=== PATIENT | male | born 1935 | race Caucasian/White ===

== ENCOUNTER 2017-03-04 11:13 | Emergency (ER) | payer OTHER ==
[2017-03-04 11:17] VITALS: BP 199/94; BMI 25.0
--- NOTE | 2017-03-04 11:31 | DR.GENAD ---
HPI - PCP Primary Care Physician: Oliver - HPI Comment HPI Comment: PATIENT CUT HIS THUMB WITH A SAW 30MIN BEFORE COMING TO ED. TD NOT UTD. PATIENT TAKES PLAVIX. MODERATE BLEEDING NOTED. - Complaint/Symptoms Chief Complaint Doctors Comments: LACERATION LEFT THUMB. Chief Complaint:: left great thumb cut with a saw about 30 min ago - Nurses notes reviewed Nurses Notes Review: Yes - Source History Provided: Patient - Mode of Arrival Mode of Arrival: Ambulatory - Timing Onset of Chief Complaint: 03/04/17 Came on: Suddenly - Duration Duration: Constant Duration: Minutes - Severity Severity: Moderate PMH - PMH Past Medical History: Yes Past Medical History: Hypertension Past Surgical History: Yes Past Surgical History Comment: kidney removed - Family History History of Family Medical Conditions: No - Social History Does patient currently use any type of tobacco product: Yes Have you used tobacco products in the last 12 months: Yes Type of Tobacco Use: Cigarettes How many years tobacco product used: 50 Does any household member use tobacco: No Alcohol Use: None Do you use any recreational Drugs:: No Lives With: Spouse Lives Where: Home - infectious screening In the last 2 months have you had wt loss of >10#?: NO Have you had fever, night sweats or hemotysis?: No Have you traveled outside the country in the last 6 months?: No Isolation: Standard ROS - Review of Systems Constitutional: No Symptoms Reported Eyes: No Symptoms Reported ENTM: No Symptoms Reported Respiratoy: No Symptoms Reported Cardiovascular: No Symptoms Reported Gastrointestinal/Abdominal: No Symptoms Reported Genitourinary: No Symptoms Reported Neurological: No Symptoms Reported Musculoskeletal: Other (LEFT THUMB.) Integumentary: Other (8CM LACERATION DISTAL INNER LEFT THUMB.) Hematologic/Lymphatic: No Symptoms Reported Endocrine: No Symptoms Reported All Other Systems: Reviewed and Negative PE - Vital Signs Vitals: Temperature 98.5 F Pulse Rate 68 Respiratory Rate 18 Blood Pressure 199/94 O2 Sat by Pulse Oximetry 95 - General Limitations: No Limitations General Appearance: Alert - Head Head Exam: Normal Inspection - Eyes Eye exam: Normal Appearance - ENT ENT Exam: Normal External Ear Exam External Ear Exam: Normal External Inspection Nose Exam: Normal Nose Exam Mouth Exam: Normal Inspection Throat Exam: Normal Inspection - Neck Neck Exam: Trachea Midline - Respiratory Respiratory Exam: Bilateral Clear to Auscultation - Cardiovascular Cardiovascular Exam: Regular Rate, Normal Rhythm, Normal Heart Sounds - Abdominal Exam Abdominal Exam: Normal Inspection - Extremities Extremities Exam: Tenderness (LEFT THUMB) - Back Back Exam: Normal Inspection - Neurologic Neurological Exam: Alert, Oriented X3 - Psychiatric Psychiatric Exam: Anxious - Skin Skin Exam: Erythema, Other (8CM LACERATION INNER DISTAL LEFT THUMB.) [facility] - Additional Information Additional Information Obtained From: Family - Differential Diagnosis Differential Diagnosis: ACERATION LEFT THUMB. Course - Treatment Treatment: SEE ORDERS. LACERATION CLOSE. - Education/Counseling Education/Counseling: Patient, Family, Education Educated On: Diagnosis, Needs for Follow Up ROR - XRAY XRAY Interpreted by: Radiologist XRAY Findings: REPORT DISCUSS WITH PATIENT. Procedures - Laceration/Wound Repair Left Thumb Wound Length (cm): 8 Wound's Depth, Shape: Irregular Wound Explored: clean Irrigated w/ Saline (ccs): 1,000 (NS) Betadine Prep?: Yes Anesthesia: 1% Lidocaine Volume Anesthetic (ccs): 10 Wound Debrided: minimal Wound Repaired With: sutures Suture Size/Type: 4:0, Ethilion Number of Sutures: 15 Layer Closure?: Yes Deep Layer Suture Size/Type: 3:0, Vicryl Number Deep Layer Sutures: 4 Sterile Dressing Applied?: Yes Splint Applied?: No Sling Applied?: No - Diagnosis Discharge Problem: Laceration of left thumb Qualifiers: Encounter type: initial encounter Qualified Code(s): S61.012A - Laceration without foreign body of left thumb without damage to nail, initial encounter - Discharge Plan Disposition: 01 HOME, SELF-CARE Condition: Stable Prescriptions: Cephalexin [Keflex Cap 500 mg] 500 mg PO TID #30 cap Tramadol HCl 50 mg PO Q8H PRN #15 tab PRN Reason: Pain - Follow ups/Referrals Follow ups/Referrals: ZENON BENAVIDES [Primary Care Provider] - 3 days - Instructions Instructions: Laceration Care, Adult, [id number] Additional Instructions: RETURN TO ED IF WORSE. SUTURE OUT ON 14 DAYS.
--- NOTE | 2017-03-04 12:08 | RAD ---
HAND RADIOGRAPHS CLINICAL HISTORY: 81-year-old male with laceration to the left thumb. COMPARISON: None. FINDINGS: Three views of the left hand were obtained and demonstrate diffuse changes consistent with osteoarthritis. With bandage overlying the left 1st digit which demonstrates significant soft tissu e edema with no radiographic evidence of underlying fracture remaining imaged osseous structures wit hout fracture or malalignment. IMPRESSION: Soft tissue edema about the left thumb without radiographic evidence of fracture. Reported By:
[2017-03-04] MEDS ORDERED: XYLOCAINE 1 % (PLAIN) ONE (12:15)
[2017-03-04] MEDS ORDERED: NS IRRIGATION 1000 ML 1,000 ML ONE (12:17)
[2017-03-04] MEDS ORDERED: ADACEL TDaP IM ONE ×2 (13:21→13:22)
[2017-03-04] MEDS ORDERED: ANCEF VIAL 1 GM IM ONE (13:24)
[2017-03-04] MEDS ORDERED: ANCEF VIAL 1 GM ONE (13:25)
== END 2017-03-04 13:59 | disposition home or self-care (01) ==
LOC: ER 11:31
PROC: 0XQM0ZZ Repair Left Thumb, Open Approach (ICD-10-PCS; principal; 2017-03-04)
DX: S61.012A Laceration without foreign body of left thumb without damage to nail, initial encounter (principal); M79.89 Other specified soft tissue disorders; W27.0XXA Contact with workbench tool, initial encounter; Y92.9 Unspecified place or not applicable
CPT/HCPCS: 12004; 73130; 90471; 96372; 99282; J0690; J2001

== ENCOUNTER 2023-06-12 16:17 | Inpatient (IN) ==
--- NOTE | 2023-06-12 16:36 | EKG ---
Test Reason : chest pain Blood Pressure : */* mmHG Vent. Rate : 99 BPM Atrial Rate : 99 BPM P-R Int : 144 ms QRS Dur : 84 ms QT Int : 318 ms P-R-T Axes : 44 -40 35 degrees QTc Int : 408 ms Sinus rhythm with premature atrial complexes Left axis deviation Abnormal ECG No previous ECGs available Confirmed by Jovan Alarcon ([id number]) on 06/14/2023 8:02:25 AM Referred By: Confirmed By: Jovan Alarcon
[2023-06-12] MEDS ORDERED: MORPHINE SULFATE INJ 2 MG INJ IVP ONE (16:37)
[2023-06-12] MEDS ORDERED: ZOFRAN INJ 4 MG VIAL IVP ONE (16:38)
[2023-06-12] MEDS ORDERED: NS 250 ML IV 250 ML IV ONE ×2 (16:39→16:45)
--- NOTE | 2023-06-12 16:40 | DR.CP ---
HPI <Marty Juan - Last Filed: 06/12/23 16:56> Time Seen Time Seen by Provider: 06/12/23 16:34 HPI Comment HPI Comment: c/o lt sided chest pain worse with inspiration and cough pt is amoker no hx cariac dis txd for htxn and high cholesterol not c/o sob no nausea no diaphoresis vaccinated for covid PMH <Marty Juan - Last Filed: 06/12/23 16:56> PMH Past Medical History: Hypertension Past Surgical History: Yes Social History Do you use any recreational Drugs:: No ROS <Marty Smithlander - Last Filed: 06/12/23 16:56> Review of Systems Eyes: No Symptoms Reported Cardiovascular: Chest Pain Genitourinary: No Symptoms Reported Musculoskeletal: No Symptoms Reported Endocrine: No Symptoms Reported PE <Marty Juan - Last Filed: 06/12/23 16:56> Vitals Vitals: Vital Signs Temperature 98.3 F Pulse Rate 86 Pulse Rate 91 Pulse Rate 90 Pulse Rate 87 Pulse Rate 89 Pulse Rate 95 Pulse Rate 90 Pulse Rate 94 Pulse Rate 96 Pulse Rate 96 Pulse Rate 96 Pulse Rate 99 Pulse Rate 95 Pulse Rate 96 Pulse Rate 91 Pulse Rate 98 Pulse Rate 95 Pulse Rate 95 Pulse Rate 95 Respiratory Rate 28 Respiratory Rate 25 Respiratory Rate 33 Respiratory Rate 23 Respiratory Rate 40 Respiratory Rate 34 Respiratory Rate 21 Respiratory Rate 22 Respiratory Rate 24 Respiratory Rate 21 Respiratory Rate 24 Respiratory Rate 26 Respiratory Rate 26 Respiratory Rate 24 Respiratory Rate 22 Respiratory Rate 27 Respiratory Rate 29 Blood Pressure 166/86 Blood Pressure 151/73 Blood Pressure 174/81 Blood Pressure 154/84 Blood Pressure 155/79 Blood Pressure 128/86 Blood Pressure 139/95 Blood Pressure 144/82 O2 Sat by Pulse Oximetry 99 O2 Sat by Pulse Oximetry 98 O2 Sat by Pulse Oximetry 94 O2 Sat by Pulse Oximetry 97 O2 Sat by Pulse Oximetry 97 O2 Sat by Pulse Oximetry 97 O2 Sat by Pulse Oximetry 96 O2 Sat by Pulse Oximetry 97 O2 Sat by Pulse Oximetry 96 O2 Sat by Pulse Oximetry 96 O2 Sat by Pulse Oximetry 96 O2 Sat by Pulse Oximetry 96 O2 Sat by Pulse Oximetry 95 O2 Sat by Pulse Oximetry 94 O2 Sat by Pulse Oximetry 94 O2 Sat by Pulse Oximetry 93 O2 Sat by Pulse Oximetry 95 O2 Sat by Pulse Oximetry 94 O2 Sat by Pulse Oximetry 95 Head Head Exam: Normal Inspection Eyes Eye exam: Normal Appearance ENT ENT Exam: Normal Exam Chest Chest Inspection: Normal Inspection Respiratory Respiratory Exam: Bilateral: Crackles and Bilateral: Decreased Breath Sounds Abdominal Exam Abdominal Exam: Normal Inspection and Normal Bowel Sounds Back Back Exam: Normal Inspection Neurologic Neurological Exam: Alert, Oriented X3 and CN II-XII Intact Skin Skin Exam: Warm and Dry <Barron Quinn - Last Filed: 06/12/23 20:25> Vitals Vitals: Vital Signs Temperature 98.3 F Pulse Rate 86 Pulse Rate 91 Pulse Rate 90 Pulse Rate 87 Pulse Rate 89 Pulse Rate 95 Pulse Rate 90 Pulse Rate 94 Pulse Rate 96 Pulse Rate 96 Pulse Rate 96 Pulse Rate 99 Pulse Rate 95 Pulse Rate 96 Pulse Rate 91 Pulse Rate 98 Pulse Rate 95 Pulse Rate 95 Pulse Rate 95 Respiratory Rate 28 Respiratory Rate 25 Respiratory Rate 33 Respiratory Rate 23 Respiratory Rate 40 Respiratory Rate 34 Respiratory Rate 21 Respiratory Rate 22 Respiratory Rate 24 Respiratory Rate 21 Respiratory Rate 24 Respiratory Rate 26 Respiratory Rate 26 Respiratory Rate 24 Respiratory Rate 22 Respiratory Rate 27 Respiratory Rate 29 Blood Pressure 166/86 Blood Pressure 151/73 Blood Pressure 174/81 Blood Pressure 154/84 Blood Pressure 155/79 Blood Pressure 128/86 Blood Pressure 139/95 Blood Pressure 144/82 O2 Sat by Pulse Oximetry 99 O2 Sat by Pulse Oximetry 98 O2 Sat by Pulse Oximetry 94 O2 Sat by Pulse Oximetry 97 O2 Sat by Pulse Oximetry 97 O2 Sat by Pulse Oximetry 97 O2 Sat by Pulse Oximetry 96 O2 Sat by Pulse Oximetry 97 O2 Sat by Pulse Oximetry 96 O2 Sat by Pulse Oximetry 96 O2 Sat by Pulse Oximetry 96 O2 Sat by Pulse Oximetry 96 O2 Sat by Pulse Oximetry 95 O2 Sat by Pulse Oximetry 94 O2 Sat by Pulse Oximetry 94 O2 Sat by Pulse Oximetry 93 O2 Sat by Pulse Oximetry 95 O2 Sat by Pulse Oximetry 94 O2 Sat by Pulse Oximetry 95 MDM <Marty Juan - Last Filed: 06/12/23 16:56> Differential Diagnosis Differential Diagnosis: Angina, Chest Wall Pain, Costochondritis, Pneumonia and Pulmonary Embolus COURSE <Marty Juan - Last Filed: 06/12/23 16:56> Treatment Treatment: duo neb morphine zofran asprin Critical Care Notes Critical Diagnosis: hypoxia /abg p02 66 room air <Barron Quinn - Last Filed: 06/12/23 20:25> Treatment Treatment: duo neb morphine zofran asprin 2023 - pt seen & treated by Dr Juan, accepted in admission by Dr Olivo. Admission orders written by nv - Dr Quinn. ROR <Marty Juan - Last Filed: 06/12/23 16:56> Labs Reviewed 06/12/23 16:45 06/12/23 16:45 Laboratory: WBC 8.7 X10^3/uL (3.6-10.0) 06/12/23 16:45 RBC 4.22 X10^6/uL (4.7-6.0) L 06/12/23 16:45 Hgb 13.3 g/dL (13.5-18.0) L 06/12/23 16:45 Hct 39.7 % (42.0-54.0) L 06/12/23 16:45 MCV 93.9 fL (80.0-100.0) 06/12/23 16:45 MCH 31.4 pg (27.0-34.0) 06/12/23 16:45 MCHC 33.5 g/dL (33.0-35.0) 06/12/23 16:45 RDW 14.8 % (11.6-16.5) 06/12/23 16:45 Plt Count 157 X10^3/uL (150.0-450.0) 06/12/23 16:45 MPV 9.9 fL (7.4-11.0) 06/12/23 16:45 Neut % (Auto) 74.3 % (42.0-75.0) 06/12/23 16:45 Lymph % (Auto) 15.2 % (21.0-51.0) L 06/12/23 16:45 Monroe % (Auto) 9.8 % (0.0-13.0) 06/12/23 16:45 Eos % (Auto) 0.2 % (0.9-2.9) L 06/12/23 16:45 Baso % (Auto) 0.5 % (0.2-1.0) 06/12/23 16:45 Neut # (Auto) 6.5 x10^3/uL (2.2-4.8) H 06/12/23 16:45 Lymph # (Auto) 1.3 X10^3/uL (1.3-2.9) 06/12/23 16:45 Monroe # (Auto) 0.9 x10^3/uL (0.3-0.8) H 06/12/23 16:45 Eos # (Auto) 0.0 x10^3/uL (0.0-0.2) 06/12/23 16:45 Baso # (Auto) 0.0 X10^3/uL (0.0-0.1) 06/12/23 16:45 Absolute Nucleated RBC 0.1 /100WBC 06/12/23 16:45 PT 14.4 SECONDS (11.8-14.3) 06/12/23 16:45 INR Target Range - 06/12/23 16:45 INR 1.14 (0.8-1.3) 06/12/23 16:45 APTT 31.7 SECONDS (22.9-36.5) 06/12/23 16:45 PTT Comment - 06/12/23 16:45 D-Dimer 3.15 ug/ml (0.0-0.57) H 06/12/23 16:45 Sample Site Lr 06/12/23 16:37 ABG pH 7.420 (7.35-7.45) 06/12/23 16:37 ABG pCO2 36.0 mmHg (35.0-45.0) 06/12/23 16:37 ABG pO2 66.0 mmHg (80.0-100.0) L 06/12/23 16:37 ABG HCO3 23.4 mmol/L (22-26) 06/12/23 16:37 ABG O2 Saturation 93.0 % (90-100) 06/12/23 16:37 ABG Base Excess -0.7 mmol/L (-2.0-2.0) 06/12/23 16:37 Osman Test Pos 06/12/23 16:37 A-a Gradient 39.0 mmHg 06/12/23 16:37 FiO2 21.0 06/12/23 16:37 Blood Gas Comments Pt carlos alberto well. cdn 06/12/23 16:37 Sodium 139 mmol/L (136-145) 06/12/23 16:45 Corrected Sodium 140 mmol/L (136-145) 06/12/23 16:45 Potassium 4.9 mmol/L (3.5-5.1) 06/12/23 16:45 Chloride 107 mmol/L (98-107) 06/12/23 16:45 Carbon Dioxide 24.4 mmol/L (21-32) 06/12/23 16:45 BUN 37 mg/dL (7-18) H 06/12/23 16:45 Creatinine 1.36 mg/dL (0.70-1.30) H 06/12/23 16:45 Est GFR (MDRD) Af Amer > 60 (>60) 06/12/23 16:45 Est GFR (MDRD) Non-Af 53 (>60) L 06/12/23 16:45 Glucose 121 mg/dL (65-99) H 06/12/23 16:45 Calcium 8.3 mg/dL (8.5-10.1) L 06/12/23 16:45 Corrected Calcium 9.7 mg/dL (8.5-10.1) 06/12/23 16:45 Total Bilirubin 0.50 mg/dL (0.2-1.0) 06/12/23 16:45 AST 65 Units/L (15-37) H 06/12/23 16:45 ALT 58 Units/L (12-78) 06/12/23 16:45 Alkaline Phosphatase 362 Units/L (46-116) H 06/12/23 16:45 Creatine Kinase 36 Units/L (39-308) L 06/12/23 16:45 Troponin I High Sens 8.8 ng/L (4.0-60.0) 06/12/23 16:45 B-Natriuretic Peptide 247 pg/mL (0-79) H 06/12/23 16:45 Total Protein 7.3 g/dL (6.4-8.2) 06/12/23 16:45 Albumin 2.2 g/dL (3.4-5.0) L 06/12/23 16:45 Globulin 5.1 g/dL (2.5-4.5) H 06/12/23 16:45 Albumin/Globulin Ratio 0.4 Ratio (1.1-2.1) L 06/12/23 16:45 <Barron Quinn - Last Filed: 06/12/23 20:25> Labs Reviewed Laboratory: WBC 8.7 X10^3/uL (3.6-10.0) 06/12/23 16:45 RBC 4.22 X10^6/uL (4.7-6.0) L 06/12/23 16:45 Hgb 13.3 g/dL (13.5-18.0) L 06/12/23 16:45 Hct 39.7 % (42.0-54.0) L 06/12/23 16:45 MCV 93.9 fL (80.0-100.0) 06/12/23 16:45 MCH 31.4 pg (27.0-34.0) 06/12/23 16:45 MCHC 33.5 g/dL (33.0-35.0) 06/12/23 16:45 RDW 14.8 % (11.6-16.5) 06/12/23 16:45 Plt Count 157 X10^3/uL (150.0-450.0) 06/12/23 16:45 MPV 9.9 fL (7.4-11.0) 06/12/23 16:45 Neut % (Auto) 74.3 % (42.0-75.0) 06/12/23 16:45 Lymph % (Auto) 15.2 % (21.0-51.0) L 06/12/23 16:45 Monroe % (Auto) 9.8 % (0.0-13.0) 06/12/23 16:45 Eos % (Auto) 0.2 % (0.9-2.9) L 06/12/23 16:45 Baso % (Auto) 0.5 % (0.2-1.0) 06/12/23 16:45 Neut # (Auto) 6.5 x10^3/uL (2.2-4.8) H 06/12/23 16:45 Lymph # (Auto) 1.3 X10^3/uL (1.3-2.9) 06/12/23 16:45 Monroe # (Auto) 0.9 x10^3/uL (0.3-0.8) H 06/12/23 16:45 Eos # (Auto) 0.0 x10^3/uL (0.0-0.2) 06/12/23 16:45 Baso # (Auto) 0.0 X10^3/uL (0.0-0.1) 06/12/23 16:45 Absolute Nucleated RBC 0.1 /100WBC 06/12/23 16:45 PT 14.4 SECONDS (11.8-14.3) 06/12/23 16:45 INR Target Range - 06/12/23 16:45 INR 1.14 (0.8-1.3) 06/12/23 16:45 APTT 31.7 SECONDS (22.9-36.5) 06/12/23 16:45 PTT Comment - 06/12/23 16:45 D-Dimer 3.15 ug/ml (0.0-0.57) H 06/12/23 16:45 Sample Site Lr 06/12/23 16:37 ABG pH 7.420 (7.35-7.45) 06/12/23 16:37 ABG pCO2 36.0 mmHg (35.0-45.0) 06/12/23 16:37 ABG pO2 66.0 mmHg (80.0-100.0) L 06/12/23 16:37 ABG HCO3 23.4 mmol/L (22-26) 06/12/23 16:37 ABG O2 Saturation 93.0 % (90-100) 06/12/23 16:37 ABG Base Excess -0.7 mmol/L (-2.0-2.0) 06/12/23 16:37 Osman Test Pos 06/12/23 16:37 A-a Gradient 39.0 mmHg 06/12/23 16:37 FiO2 21.0 06/12/23 16:37 Blood Gas Comments Pt carlos alberto well. cdn 06/12/23 16:37 Sodium 139 mmol/L (136-145) 06/12/23 16:45 Corrected Sodium 140 mmol/L (136-145) 06/12/23 16:45 Potassium 4.9 mmol/L (3.5-5.1) 06/12/23 16:45 Chloride 107 mmol/L (98-107) 06/12/23 16:45 Carbon Dioxide 24.4 mmol/L (21-32) 06/12/23 16:45 BUN 37 mg/dL (7-18) H 06/12/23 16:45 Creatinine 1.36 mg/dL (0.70-1.30) H 06/12/23 16:45 Est GFR (MDRD) Af Amer > 60 (>60) 06/12/23 16:45 Est GFR (MDRD) Non-Af 53 (>60) L 06/12/23 16:45 Glucose 121 mg/dL (65-99) H 06/12/23 16:45 Calcium 8.3 mg/dL (8.5-10.1) L 06/12/23 16:45 Corrected Calcium 9.7 mg/dL (8.5-10.1) 06/12/23 16:45 Total Bilirubin 0.50 mg/dL (0.2-1.0) 06/12/23 16:45 AST 65 Units/L (15-37) H 06/12/23 16:45 ALT 58 Units/L (12-78) 06/12/23 16:45 Alkaline Phosphatase 362 Units/L (46-116) H 06/12/23 16:45 Creatine Kinase 36 Units/L (39-308) L 06/12/23 16:45 Troponin I High Sens 8.8 ng/L (4.0-60.0) 06/12/23 16:45 B-Natriuretic Peptide 247 pg/mL (0-79) H 06/12/23 16:45 Total Protein 7.3 g/dL (6.4-8.2) 06/12/23 16:45 Albumin 2.2 g/dL (3.4-5.0) L 06/12/23 16:45 Globulin 5.1 g/dL (2.5-4.5) H 06/12/23 16:45 Albumin/Globulin Ratio 0.4 Ratio (1.1-2.1) L 06/12/23 16:45 Opioid <Marty Juan - Last Filed: 06/12/23 16:56> Opioid Risk Tool Total: 0 Total Score Risk Category: Low Risk Copyright: Jordy SANCHEZ predicting aberrant behaviors <Barron Quinn - Last Filed: 06/12/23 20:25> Opioid Risk Tool Total: 0 Total Score Risk Category: Low Risk Discharge Plan Diagnosis Discharge Problem: Hypoxia, Left lower lobe pneumonia Discharge Plan Patient Disposition: 09 ADMITTED INPATIENT Condition: Stable Prescriptions: No Action lisinopril 20 mg tablet 20 mg PO QDAY lovastatin 40 mg tablet 40 mg PO QDAY travoprost 0.004 % drops 2 drp OPHTHALMIC (EYE) QPM tramadol 50 mg tablet 50 mg PO Q6H PRN brimonidine 0.2 % drops 1 drp OPHTHALMIC (EYE) BID dorzolamide-timolol 22.3-6.8 mg/mL drops 1 drp OPHTHALMIC (EYE) BID Health Concerns: Post Hospitalization: new medications and changes needed to prevent readmission or further decline. Pt educated and given instructions on all concerns. Plan of Treatment: Continue with present treatment and follow up plan. Pt is to keep follow up appointment as instructed and take medications as ordered. Orders to Discharge Patient Discharge Orders: Transfer (Routine); Ordered 06/12/23 Ordered By: Barron Quinn Follow ups/Referrals Follow ups/Referrals: ZENON BENAVIDES [Primary Care Provider] - 3 days
[2023-06-12] MEDS ORDERED: DUONEB 0.5 MG/3 MG (3 mL) NEB ONE (16:42)
[2023-06-12] MEDS ORDERED: ASPIRIN 81 MG CHEWTAB ONE ×2 (16:44→16:59)
[2023-06-12] MEDS ORDERED: MORPHINE SULFATE INJ 2 MG INJ ONE (16:44)
[2023-06-12] MEDS: DUONEB 0.5 MG/3 MG (3 mL) NEB ONE ×2 (16:45→16:52)
[2023-06-12] MEDS ORDERED: ZOFRAN INJ 4 MG VIAL ONE (16:46)
[2023-06-12 16:50] LABS: ABG ALLEN TEST POS; ABG BASE EXCESS -0.7 mmol/L (-2.0-2.0); ABG HCO3 23.4 mmol/L (22-26)
[2023-06-12 17:05] LABS: MEAN CORPUSCULAR VOLUME 93.9 fL (80.0-100.0); MEAN PLATELET VOLUME 9.9 fL (7.4-11.0); WHITE BLOOD COUNT 8.7 X10^3/uL (3.6-10.0)
[2023-06-12 17:08] LABS: BASOPHILS % (AUTO) 0.5 % (0.2-1.0); EOSINOPHILS % (AUTO) 0.2 % (0.9-2.9); HEMATOCRIT 39.7 % (42.0-54.0); HEMOGLOBIN 13.3 g/dL (13.5-18.0); LYMPHOCYTES # (AUTO) 1.3 X10^3/uL (1.3-2.9); LYMPHOCYTES % (AUTO) 15.2 % (21.0-51.0); MEAN CORPUSCULAR HEMOGLOBIN 31.4 pg (27.0-34.0); MEAN CORPUSCULAR HGB CONC 33.5 g/dL (33.0-35.0); MONOCYTES # (AUTO) 0.9 x10^3/uL (0.3-0.8); MONOCYTES % (AUTO) 9.8 % (0.0-13.0); NEUTROPHILS # (AUTO) 6.5 x10^3/uL (2.2-4.8); NEUTROPHILS % (AUTO) 74.3 % (42.0-75.0); PLATELET COUNT 157 X10^3/uL (150.0-450.0); RED BLOOD COUNT 4.22 X10^6/uL (4.7-6.0); RED CELL DISTRIBUTION WIDTH 14.8 % (11.6-16.5)
[2023-06-12] MEDS: ASPIRIN 81 MG CHEWTAB PO SCH ×2 (17:08→17:10)
[2023-06-12 17:16] LABS: INR 1.14 (0.8-1.3)
[2023-06-12 17:23] LABS: ALANINE AMINOTRANSFERASE 58 Units/L (12-78); ALBUMIN 2.2 g/dL (3.4-5.0); ALKALINE PHOSPHATASE 362 Units/L (46-116); ASPARTATE AMINO TRANSFERASE 65 Units/L (15-37); BLOOD UREA NITROGEN 37 mg/dL (7-18); CALCIUM 8.3 mg/dL (8.5-10.1); CARBON DIOXIDE 24.4 mmol/L (21-32); CHLORIDE 107 mmol/L (98-107); COR CA(FOR HYPOALB) 9.7 mg/dL (8.5-10.1); COR NA(FOR HYPERGLY) 140 mmol/L (136-145); CREATINE KINASE 36 Units/L (39-308); CREATININE 1.36 mg/dL (0.70-1.30); GLUCOSE 121 mg/dL (65-99); POTASSIUM 4.9 mmol/L (3.5-5.1); SODIUM 139 mmol/L (136-145); TOTAL PROTEIN 7.3 g/dL (6.4-8.2); eGFR NON BLACK RACES 53 (>60)
[2023-06-12] MEDS ORDERED: OMNIPAQUE 350 mg/mL 100 mL BTL 100 ML ONE (19:15)
--- NOTE | 2023-06-12 19:28 | RAD ---
HISTORYPatient c/o of left side chest pain,worsens when coughingSTUDYCHEST, 1 VIEWCOMPARISONNone availableTECHNIQUEChest radiographic imaging, AP portable projection, 1 imageFINDINGSNo cardiomegaly.Airspace disease in the left lower lobe.No pleural effusion.No pneumothorax.No acute osseous abnormality.IMPRESSIONAirspace disease in the left lower lobe is nonspecific. Differential diagnosis includes infection, atelectasis and aspiration.Electronically signed by: Waldemar Blum (Jun 12, 2023 19:27:46)
--- NOTE | 2023-06-12 20:00 | CT ---
HISTORYPATIENT C/O OF LEFT SIDE CHEST PAIN, WORSENS WHEN COUGHINGSTUDYCTA CHESTCOMPARISONChest radiograph from June 12, 2023TECHNIQUEAxial CT images of the chest were obtained after the administration of 100 mL Omnipaque 350 IV contrast utilizing a CTA protocol. 3D MIPS were performed and reviewed for further evaluation.Radiation dose: 163.49 mGy-cm total DLPFINDINGSNo significant pericardial effusion.Coronary artery calcifications.No mediastinal or hilar lymphadenopathy.Aorta is normal in caliber without dissection.Pulmonary arteries are normal in caliber without filling defects to suggest a pulmonary embolus.Airways are widely patent.Thyroid appears normal.Small left pleural effusion.Mild centrilobular and paraseptal emphysema.Airspace disease in the left lower lobe and lingula.No pneumothorax.Bilateral nodules in the upper lobes and lingula measuring up to 1 cm; approximately 10 total.Heterogeneous enhancing mass in the posterior interpolar region of the left kidney measuring 3.3 x 3 cm.High attenuation indeterminate 1.4 x 1.2 cm foci in the anterior interpolar region of the left kidney.Nonobstructing 4 mm left nephrolith.Ill-defined low-attenuation 3.5 x 2.6 cm foci in the right hepatic lobe on axial image 142. 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 No pulmonary embolus identified.2. Infiltrate in the lingula and left lower lobe is concerning for multifocal pneumonia but could also be seen with aspiration.3. Heterogeneously enhancing mass in the interpolar region of the left kidney; concerning for a neoplastic process. Additionally there is a high attenuation foci in the anterior interpolar region of the left kidney which is indeterminate. Recommend dedicated renal imaging.4. Approximately 10 upper lobe pulmonary nodules measuring up to 1 cm. Findings are concerning for metastatic disease; correlate clinically.5. Low-attenuation indeterminate foci in the right hepatic lobe. Finding can be further evaluated on the recommended cross-sectional imaging of the kidneys. Additionally, there may be high attenuation nodular areas within the liver which could also represent metastatic disease.6. Cirrhotic morphology of the liver.Electronically signed by: Waldemar Blum (Jun 12, 2023 19:58:50)
[2023-06-12] MEDS ORDERED: CONSULT PHARMACY - POTASSIUM & MAGNESIUM XX SCH (21:42)
[2023-06-12] MEDS ORDERED: ZESTRIL TAB 20 MG ONE (22:03)
[2023-06-12] MEDS: ULTRAM PO PRN (22:09)
[2023-06-12] MEDS: D5 1/2 NS 1,000 ML 1,000 ML IV SCH (22:10)
[2023-06-12] MEDS: ZESTRIL TAB 20 MG PO SCH (22:10)
[2023-06-12] MEDS: ROCEPHIN VIAL 1 GRAM 1 G in NS 100 ML IV 100 ML IV SCH (22:11)
[2023-06-12 23:33] VITALS: BMI 20.5
[2023-06-12] MEDS: TRAVATAN Z OP SCH (23:36)
[2023-06-12] MEDS: ALPHAGAN 0.2% OPHTH SOLN OP SCH (23:36)
[2023-06-12] MEDS: COSOPT OPTH OP SCH (23:37)
[2023-06-13] MEDS: ULTRAM PO PRN ×4 (05:16→23:24)
[2023-06-13 07:03] LABS: BASOPHILS % (AUTO) 0.4 % (0.2-1.0); EOSINOPHILS % (AUTO) 0.2 % (0.9-2.9); HEMATOCRIT 38.3 % (42.0-54.0); HEMOGLOBIN 12.7 g/dL (13.5-18.0); LYMPHOCYTES # (AUTO) 1.1 X10^3/uL (1.3-2.9); LYMPHOCYTES % (AUTO) 13.4 % (21.0-51.0); MEAN CORPUSCULAR HGB CONC 33.1 g/dL (33.0-35.0); MEAN CORPUSCULAR VOLUME 93.6 fL (80.0-100.0); MEAN PLATELET VOLUME 9.8 fL (7.4-11.0); MONOCYTES # (AUTO) 0.9 x10^3/uL (0.3-0.8); MONOCYTES % (AUTO) 10.5 % (0.0-13.0); NEUTROPHILS # (AUTO) 6.2 x10^3/uL (2.2-4.8); NEUTROPHILS % (AUTO) 75.5 % (42.0-75.0); PLATELET COUNT 128 X10^3/uL (150.0-450.0); RED BLOOD COUNT 4.09 X10^6/uL (4.7-6.0); RED CELL DISTRIBUTION WIDTH 15.2 % (11.6-16.5); WHITE BLOOD COUNT 8.2 X10^3/uL (3.6-10.0)
[2023-06-13 07:30] LABS: ALANINE AMINOTRANSFERASE 45 Units/L (12-78); ALBUMIN 1.8 g/dL (3.4-5.0); ALKALINE PHOSPHATASE 311 Units/L (46-116); ASPARTATE AMINO TRANSFERASE 54 Units/L (15-37); BLOOD UREA NITROGEN 28 mg/dL (7-18); CALCIUM 7.8 mg/dL (8.5-10.1); CARBON DIOXIDE 26.6 mmol/L (21-32); CHLORIDE 107 mmol/L (98-107); COR CA(FOR HYPOALB) 9.6 mg/dL (8.5-10.1); CREATININE 1.11 mg/dL (0.70-1.30); GLUCOSE 104 mg/dL (65-99); POTASSIUM 4.7 mmol/L (3.5-5.1); SODIUM 140 mmol/L (136-145); TOTAL PROTEIN 6.3 g/dL (6.4-8.2); eGFR NON BLACK RACES > 60 (>60)
[2023-06-13] MEDS: DUONEB 0.5 MG/3 MG (3 mL) NEB SCH ×4 (08:56→21:02)
[2023-06-13] MEDS ORDERED: PATIENT'S HOME MEDICATION (Lovastatin 40 mg tablet) PO SCH (09:00)
[2023-06-13] MEDS ORDERED: ZESTRIL TAB 20 MG PO SCH (09:00)
[2023-06-13] MEDS: COSOPT OPTH OP SCH ×2 (09:51→21:39)
[2023-06-13] MEDS: ASPIRIN 81 MG CHEWTAB PO SCH (09:51)
[2023-06-13] MEDS: ALPHAGAN 0.2% OPHTH SOLN OP SCH ×2 (09:52→21:41)
[2023-06-13] MEDS: ROBITUSSIN DM PO PRN ×2 (10:33→21:39)
[2023-06-13] MEDS: D5 1/2 NS 1,000 ML 1,000 ML IV SCH ×2 (12:04→23:30)
[2023-06-13] MEDS ORDERED: TUSSIONEX PENNKINETIC SUSP PO PRN (13:47)
[2023-06-13] MEDS: SOLU-Medrol 40 MG VIAL IVP SCH (15:06)
[2023-06-13 15:19] LABS: FREE T4 (FREE THYROXINE) 0.98 ng/dL (0.76-1.46); TSH (3RD GENERATION) 1.055 uIU/mL (0.358-3.74)
[2023-06-13] MEDS: LOVENOX INJ 40 MG SYR SC SCH (16:22)
--- NOTE | 2023-06-13 18:08 | DR.H&P ---
H&P - History & Physical for Day of: H&P Date: 06/12/23 - Chief Complaint Chief Complaint: CHEST PAIN WITH COUGHING, SOB - History of Present Illness History of Present Illness: Pt c/o lt sided chest pain worse with inspiration and cough. Pt is 88 wm, ER admission with co pmh smoker, hypertension, hyperlipidemia and glaucoma. 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 - Past Medical History Past Medical History: Arthritis, Hypertension - Past Surgical History Surgical History: Ortho Surgery, Other - Social History Does patient currently use any type of tobacco product: Yes Have you used tobacco products in the last 12 months: Yes Type of Tobacco Use: Cigarettes How many years tobacco product used: 75 Does any household member use tobacco: No Alcohol Use: None Drug Use: Prescription Drugs - Review of Systems Constitutional: Weakness Eyes: No Symptoms Reported ENT: No Symptoms Reported Respiratory: Cough, Shortness of Breath, Pleuritic Pain Cardiovascular: Chest Pain Gastrointestinal: Nausea Genitourinary: No Symptoms Reported Musculoskeletal: Back Pain Skin: No Symptoms Reported Neurological: Weakness - Physical Exam Vital Signs: Vital Signs Temperature 98.3 F Temperature 99.1 F Pulse Rate [Left] 81 Pulse Rate [Left] 112 Pulse Rate 109 Respiratory Rate 18 Respiratory Rate 20 Respiratory Rate 20 Respiratory Rate 20 Respiratory Rate 20 Blood Pressure [Right Arm] 136/66 Blood Pressure [Right Arm] 151/75 O2 Sat by Pulse Oximetry 97 O2 Sat by Pulse Oximetry 90 O2 Sat by Pulse Oximetry 91 Oriented: Normal Eyes: Normal Ear: Normal Nose: Normal Throat: Normal Respiratory: RML Diminished, RLL Diminished, LML Diminished, LLL Diminished Cardiovascular: Normal. negative: Edema : Normal Auscultation: Bowel Sounds: Normal Palpation: Normal Tenderness: Normal Skin: Decreased Turgur Musculoskeletal: Back:Lumbar Psychiatric: Anxiety Affect: Anxious Speech Pattern: Clear, Appropriate - Assessment/Plan (1) Pneumonia Status: Acute Plan: ADMIT, SPUTUM CULTURE ORDERED ON ADMISSION. CTA OF CHEST REVEALED ABNORMAL LUNG, LIVER AND RENAL FINDINGS. GENTLE IV HYDRATION, I&OS. SUPPLEMENTAL O2, PAIN CONTROL. BP AND CARDIAC MONITORING (2) Renal mass, left Status: Acute (3) Hypertension Status: Acute (4) Hyperlipidemia Status: Acute (5) Hypoxia Status: Acute - Allergies Allergies/Adverse Reactions: Allergies Allergy/AdvReac Type Severity Reaction Status Date / Time morphine AdvReac Verified 06/12/23 18:58 - Medications Home Medications: Home Medications Medication Instructions Recorded Confirmed brimonidine 0.2 % eye drops 1 drp ophthalmic (eye) BID 06/12/23 06/12/23 dorzolamide 22.3 mg-timolol 6.8 1 drp ophthalmic (eye) BID 06/12/23 06/12/23 mg/mL eye drops lisinopril 20 mg tablet 20 mg PO QDAY 06/12/23 06/12/23 lovastatin 40 mg tablet 40 mg PO QDAY 06/12/23 06/12/23 tramadol 50 mg tablet 50 mg PO Q6H PRN 06/12/23 06/12/23 travoprost 0.004 % eye drops 2 drp ophthalmic (eye) QPM 06/12/23 06/12/23
[2023-06-13] MEDS ORDERED: ZESTRIL TAB 20 MG ONE (20:52)
[2023-06-13] MEDS: ROCEPHIN VIAL 1 GRAM 1 G in NS 100 ML IV 100 ML IV SCH (21:38)
[2023-06-13] MEDS: ZOCOR TAB 20 MG PO SCH (21:38)
[2023-06-13] MEDS: ZESTRIL TAB 20 MG PO SCH (21:38)
[2023-06-13] MEDS: TRAVATAN Z OP SCH (21:42)
[2023-06-14 06:25] LABS: CHOL/HDL RATIO 2.8 (0.0-5.0)
[2023-06-14 06:38] LABS: TOTAL PSA 2.16 ng/mL (0.13-4.0)
[2023-06-14] MEDS: ULTRAM PO PRN (07:10)
[2023-06-14] MEDS: ROBITUSSIN DM PO PRN (07:10)
[2023-06-14 07:30] LABS: BASOPHILS % (AUTO) 0.1 % (0.2-1.0); HEMOGLOBIN 12.5 g/dL (13.5-18.0); LYMPHOCYTES # (AUTO) 0.8 X10^3/uL (1.3-2.9); LYMPHOCYTES % (AUTO) 7.2 % (21.0-51.0); MEAN CORPUSCULAR HEMOGLOBIN 30.4 pg (27.0-34.0); MEAN CORPUSCULAR HGB CONC 31.9 g/dL (33.0-35.0); MEAN CORPUSCULAR VOLUME 95.2 fL (80.0-100.0); MONOCYTES # (AUTO) 0.7 x10^3/uL (0.3-0.8); MONOCYTES % (AUTO) 6.1 % (0.0-13.0); NEUTROPHILS # (AUTO) 9.7 x10^3/uL (2.2-4.8); NEUTROPHILS % (AUTO) 86.6 % (42.0-75.0); PLATELET COUNT 121 X10^3/uL (150.0-450.0); RED CELL DISTRIBUTION WIDTH 14.9 % (11.6-16.5); WHITE BLOOD COUNT 11.3 X10^3/uL (3.6-10.0)
[2023-06-14 07:36] LABS: BLOOD UREA NITROGEN 32 mg/dL (7-18); CALCIUM 8.3 mg/dL (8.5-10.1); CARBON DIOXIDE 25.5 mmol/L (21-32); CHLORIDE 105 mmol/L (98-107); COR NA(FOR HYPERGLY) 139 mmol/L (136-145); CREATININE 1.36 mg/dL (0.70-1.30); GLUCOSE 135 mg/dL (65-99); POTASSIUM 5.2 mmol/L (3.5-5.1); SODIUM 138 mmol/L (136-145); eGFR NON BLACK RACES 53 (>60)
[2023-06-14 07:57] LABS: ALANINE AMINOTRANSFERASE 48 Units/L (12-78); ALBUMIN 1.7 g/dL (3.4-5.0); ALKALINE PHOSPHATASE 321 Units/L (46-116); ASPARTATE AMINO TRANSFERASE 47 Units/L (15-37); COR CA(FOR HYPOALB) 10.1 mg/dL (8.5-10.1); TOTAL PROTEIN 6.4 g/dL (6.4-8.2)
[2023-06-14] MEDS: DUONEB 0.5 MG/3 MG (3 mL) NEB SCH ×4 (08:43→21:30)
[2023-06-14] MEDS: SOLU-Medrol 40 MG VIAL IVP SCH (09:25)
[2023-06-14] MEDS: LOVENOX INJ 40 MG SYR SC SCH (09:27)
[2023-06-14] MEDS: ASPIRIN 81 MG CHEWTAB PO SCH (09:27)
[2023-06-14] MEDS: COSOPT OPTH OP SCH ×2 (09:28→20:59)
[2023-06-14] MEDS: ALPHAGAN 0.2% OPHTH SOLN OP SCH ×2 (09:31→21:00)
--- NOTE | 2023-06-14 11:45 | RAD ---
HISTORYPNEUMONIA Relevant Clinical InformationSTUDYCHEST, 1 [id number]/30/2023FINDINGSThe trachea is midline. There is mild cardiomegaly. There has been interval worsening of ground-glass radiopacities bilaterally suspicious for pulmonary edema. There is persistent and alveolar radiopacity in the left lower lobe suspicious for pneumonia.There is a focal nodule in the left upper lobe t,here is an unchanged posterior fusion of the mid thoracic spine.IMPRESSIONPersistent left lower lobe radiopacity consistent with pneumonia no pneumothorax or pleural effusions.New ground-glass radiopacities with perihilar infiltrates suspicious for pulmonary edema. .Electronically signed by: Lelo Day (Jun 14, 2023 11:44:01)
[2023-06-14] MEDS ORDERED: LASIX IVP ONE (11:55)
[2023-06-14] MEDS ORDERED: MICRO K EXTEN CAP 10 MEQ PO ONE (11:57)
[2023-06-14] MEDS: D5 1/2 NS 1,000 ML 1,000 ML IV SCH (12:30)
[2023-06-14] MEDS: ROBITUSSIN DM PO SCH ×3 (12:30→21:00)
[2023-06-14] MEDS: ULTRAM PO SCH ×2 (12:31→18:27)
[2023-06-14] MEDS: MILK OF MAGNESIA PO PRN (12:32)
[2023-06-14] MEDS ORDERED: ZESTRIL TAB 20 MG ONE (20:28)
[2023-06-14] MEDS: ZOCOR TAB 20 MG PO SCH (20:58)
[2023-06-14] MEDS: ZESTRIL TAB 20 MG PO SCH (20:58)
[2023-06-14] MEDS: TRAVATAN Z OP SCH (20:59)
[2023-06-14] MEDS: ROCEPHIN VIAL 1 GRAM 1 G in NS 100 ML IV 100 ML IV SCH (21:00)
[2023-06-15] MEDS: ULTRAM PO SCH ×4 (01:28→20:29)
[2023-06-15] MEDS: D5 1/2 NS 1,000 ML 1,000 ML IV SCH (02:03)
--- NOTE | 2023-06-15 06:13 | RAD ---
HISTORYPNEUMONIASTUDYCHEST, 1 [id number]/01/2023FINDINGSThe cardiomediastinal silhouette is stable given rotation. Similar bilateral opacities. No pneumothorax. The bony thorax appears intact. Posterior spinal fusion hardware.IMPRESSIONSimilar bilateral opacities.Electronically signed by: MICHAEL GUPTA (Jun 15, 2023 06:12:08)
[2023-06-15 06:31] LABS: BASOPHILS % (AUTO) 0.1 % (0.2-1.0); HEMOGLOBIN 12.8 g/dL (13.5-18.0); LYMPHOCYTES # (AUTO) 0.9 X10^3/uL (1.3-2.9); LYMPHOCYTES % (AUTO) 7.9 % (21.0-51.0); MEAN CORPUSCULAR HGB CONC 32.7 g/dL (33.0-35.0); MEAN CORPUSCULAR VOLUME 94.8 fL (80.0-100.0); MEAN PLATELET VOLUME 10.3 fL (7.4-11.0); MONOCYTES # (AUTO) 0.8 x10^3/uL (0.3-0.8); MONOCYTES % (AUTO) 6.9 % (0.0-13.0); NEUTROPHILS % (AUTO) 85.1 % (42.0-75.0); PLATELET COUNT 136 X10^3/uL (150.0-450.0); RED BLOOD COUNT 4.12 X10^6/uL (4.7-6.0); RED CELL DISTRIBUTION WIDTH 14.9 % (11.6-16.5); WHITE BLOOD COUNT 11.8 X10^3/uL (3.6-10.0)
[2023-06-15 06:32] LABS: BLOOD UREA NITROGEN 37 mg/dL (7-18); CARBON DIOXIDE 28.1 mmol/L (21-32); CHLORIDE 103 mmol/L (98-107); CREATININE 1.24 mg/dL (0.70-1.30); GLUCOSE 87 mg/dL (65-99); POTASSIUM 5.3 mmol/L (3.5-5.1); SODIUM 136 mmol/L (136-145); eGFR NON BLACK RACES 59 (>60)
[2023-06-15 06:51] LABS: ALANINE AMINOTRANSFERASE 77 Units/L (12-78); ALBUMIN 1.5 g/dL (3.4-5.0); ALKALINE PHOSPHATASE 366 Units/L (46-116); ASPARTATE AMINO TRANSFERASE 86 Units/L (15-37); TOTAL PROTEIN 6.3 g/dL (6.4-8.2)
[2023-06-15] MEDS: DUONEB 0.5 MG/3 MG (3 mL) NEB SCH ×4 (09:00→20:55)
[2023-06-15] MEDS ORDERED: LASIX IVP SCH (09:00)
[2023-06-15] MEDS: ROBITUSSIN DM PO SCH ×4 (09:10→20:28)
[2023-06-15] MEDS: SOLU-Medrol 40 MG VIAL IVP SCH (09:10)
[2023-06-15] MEDS: LOVENOX INJ 40 MG SYR SC SCH (09:10)
[2023-06-15] MEDS: ASPIRIN 81 MG CHEWTAB PO SCH (09:11)
[2023-06-15] MEDS: COSOPT OPTH OP SCH ×2 (09:36→20:34)
[2023-06-15] MEDS: ALPHAGAN 0.2% OPHTH SOLN OP SCH ×2 (09:36→20:34)
[2023-06-15] MEDS: NS 1,000 ML IV 1,000 ML IV SCH (10:05)
[2023-06-15] MEDS: MILK OF MAGNESIA PO PRN (14:41)
--- NOTE | 2023-06-15 18:30 | PCM.PROG ---
Progress Note - Progress Note for Day of Date of Exam: 06/15/23 - Subjective Subjective: This is an 88-year-old white male who is an ER admission with shortness of breath, cough, and pleuritic pain. The patient had a CTA of his chest on admission revealing pneumonia, as well as multiple pulmonary nodules, left renal mass, as well as abnormal findings on the right hepatic lobe. We discussed these diagnostic tests and labs with the patients spouse and daughter with the need for oncology follow up. We discussed diagnostic testing with patient today as well. He states he would see Dr. Merida for oncology evaluation. Plan to obtain an ECHO and Dr Merida referral. Pts chest xray has continued bilateral pneumonia. He is on supplemental o2 with o2 sats 96%. Pt co continued "terrible" left side pain with coughing spells. - Past Medical Family Social History Past Med/Fam/Surg Hx: No changes since H&P Allergies: Allergies morphine Adverse Reaction (Verified 06/12/23 18:58) - Review of Systems ROS: No change since H&P - Vital Signs and I&O's Vital Signs: Vital Signs Temperature 98 F Temperature 98.9 F Pulse Rate [Right Brachial] 86 Pulse Rate [Right Brachial] 86 Respiratory Rate 18 Respiratory Rate 20 Respiratory Rate 18 Respiratory Rate 18 Blood Pressure [Right Arm] 151/70 Blood Pressure [Right Arm] 149/73 O2 Sat by Pulse Oximetry 94 O2 Sat by Pulse Oximetry 93 Intake and Output: Intake & Output 06/13/23 06/14/23 06/15/23 06/16/23 11:59 11:59 11:59 11:59 Intake Total 702 / 702 2106 / 2106 189 / 1 480 / 480 Balance 702 / 702 2106 / 1890 480 / 480 - Physical Exam Oriented: Normal Eyes: Normal Ear: Normal Nose: Normal Throat: Normal Respiratory: Diminished Cardiovascular: Normal. negative: Edema : Normal Auscultation: Bowel Sounds: Normal Tenderness: Normal Skin: Decreased Turgur Musculoskeletal: Back:Lumbar Psychiatric: Anxiety Affect: Anxious Speech Pattern: Clear, Appropriate - Laboratory and Diagnostics Result Diagrams: 06/15/23 05:21 06/15/23 05:21 Labs: 06/12/23 22:50 Sputum - Expectorated Sputum Sputum Culture - Final 06/12/23 22:50 Sputum - Expectorated Sputum - Final 06/12/23 16:45 Blood Blood Culture - Preliminary 06/12/23 16:40 Blood Blood Culture - Preliminary Laboratory WBC 11.8 X10^3/uL (3.6-10.0) H 06/15/23 05:21 RBC 4.12 X10^6/uL (4.7-6.0) L 06/15/23 05:21 Hgb 12.8 g/dL (13.5-18.0) L 06/15/23 05:21 Hct 39.0 % (42.0-54.0) L 06/15/23 05:21 MCV 94.8 fL (80.0-100.0) 06/15/23 05:21 MCH 31.0 pg (27.0-34.0) 06/15/23 05:21 MCHC 32.7 g/dL (33.0-35.0) L 06/15/23 05:21 RDW 14.9 % (11.6-16.5) 06/15/23 05:21 Plt Count 136 X10^3/uL (150.0-450.0) L 06/15/23 05:21 MPV 10.3 fL (7.4-11.0) 06/15/23 05:21 Neut % (Auto) 85.1 % (42.0-75.0) H 06/15/23 05:21 Lymph % (Auto) 7.9 % (21.0-51.0) L 06/15/23 05:21 [place] % (Auto) 6.9 % (0.0-13.0) 06/15/23 05:21 Eos % (Auto) 0.0 % (0.9-2.9) L 06/15/23 05:21 Baso % (Auto) 0.1 % (0.2-1.0) L 06/15/23 05:21 Neut # (Auto) 10.0 x10^3/uL (2.2-4.8) H 06/15/23 05:21 Lymph # (Auto) 0.9 X10^3/uL (1.3-2.9) L 06/15/23 05:21 [place] # (Auto) 0.8 x10^3/uL (0.3-0.8) 06/15/23 05:21 Eos # (Auto) 0.0 x10^3/uL (0.0-0.2) 06/15/23 05:21 Baso # (Auto) 0.0 X10^3/uL (0.0-0.1) 06/15/23 05:21 Absolute Nucleated RBC 0.1 /100WBC 06/15/23 05:21 PT 14.4 SECONDS (11.8-14.3) 06/12/23 16:45 INR Target Range - 06/12/23 16:45 INR 1.14 (0.8-1.3) 06/12/23 16:45 APTT 31.7 SECONDS (22.9-36.5) 06/12/23 16:45 PTT Comment - 06/12/23 16:45 D-Dimer 3.15 ug/ml (0.0-0.57) H 06/12/23 16:45 Sample Site Lr 06/12/23 16:37 ABG pH 7.420 (7.35-7.45) 06/12/23 16:37 ABG pCO2 36.0 mmHg (35.0-45.0) 06/12/23 16:37 ABG pO2 66.0 mmHg (80.0-100.0) L 06/12/23 16:37 ABG HCO3 23.4 mmol/L (22-26) 06/12/23 16:37 ABG O2 Saturation 93.0 % (90-100) 06/12/23 16:37 ABG Base Excess -0.7 mmol/L (-2.0-2.0) 06/12/23 16:37 Osman Test Pos 06/12/23 16:37 A-a Gradient 39.0 mmHg 06/12/23 16:37 FiO2 21.0 06/12/23 16:37 Blood Gas Comments Pt carlos alberto well. cdn 06/12/23 16:37 Sodium 136 mmol/L (136-145) 06/15/23 05:21 Corrected Sodium TNP 06/15/23 05:21 Potassium 5.3 mmol/L (3.5-5.1) H 06/15/23 05:21 Chloride 103 mmol/L (98-107) 06/15/23 05:21 Carbon Dioxide 28.1 mmol/L (21-32) 06/15/23 05:21 BUN 37 mg/dL (7-18) H 06/15/23 05:21 Creatinine 1.24 mg/dL (0.70-1.30) 06/15/23 05:21 Est GFR (MDRD) Af Amer > 60 (>60) 06/15/23 05:21 Est GFR (MDRD) Non-Af 59 (>60) 06/15/23 05:21 Glucose 87 mg/dL (65-99) 06/15/23 05:21 Calcium 8.0 mg/dL (8.5-10.1) L 06/15/23 05:21 Corrected Calcium 10.0 mg/dL (8.5-10.1) 06/15/23 05:21 Total Bilirubin 0.20 mg/dL (0.2-1.0) 06/15/23 05:21 AST 86 Units/L (15-37) H 06/15/23 05:21 ALT 77 Units/L (12-78) 06/15/23 05:21 Alkaline Phosphatase 366 Units/L (46-116) H 06/15/23 05:21 Lactate Dehydrogenase 193 Units/L (85-227) 06/14/23 05:20 Creatine Kinase 36 Units/L (39-308) L 06/12/23 16:45 Troponin I High Sens 8.8 ng/L (4.0-60.0) 06/12/23 16:45 B-Natriuretic Peptide 247 pg/mL (0-79) H 06/12/23 16:45 Total Protein 6.3 g/dL (6.4-8.2) L 06/15/23 05:21 Albumin 1.5 g/dL (3.4-5.0) L 06/15/23 05:21 Globulin 4.8 g/dL (2.5-4.5) H 06/15/23 05:21 Albumin/Globulin Ratio 0.3 Ratio (1.1-2.1) L 06/15/23 05:21 Triglycerides 66 mg/dL (0-150) 06/14/23 05:20 Cholesterol 98 mg/dL (0-200) 06/14/23 05:20 LDL Cholesterol, Calc 50 mg/dL (0-100) 06/14/23 05:20 HDL Cholesterol 35 mg/dL (40-60) L 06/14/23 05:20 Cholesterol/HDL Ratio 2.8 (0.0-5.0) 06/14/23 05:20 Total PSA 2.16 ng/mL (0.13-4.0) 06/14/23 05:20 Free T4 0.98 ng/dL (0.76-1.46) 06/13/23 05:05 TSH 3rd Generation 1.055 uIU/mL (0.358-3.74) 06/13/23 05:05 - Plan (1) Pneumonia Status: Acute Plan: SPUTUM CULTURE ORDERED ON ADMISSION. CTA OF CHEST REVEALED ABNORMAL LUNG, LIVER AND RENAL FINDINGS. GENTLE IV HYDRATION, I&OS. SUPPLEMENTAL O2, PAIN CONTROL. BP AND CARDIAC MONITORING (2) Renal mass, left Status: Acute (3) Hypertension Status: Acute (4) Hyperlipidemia Status: Acute (5) Hypoxia Status: Acute
[2023-06-15] MEDS ORDERED: ZESTRIL TAB 20 MG ONE (20:07)
[2023-06-15] MEDS: ZOCOR TAB 20 MG PO SCH (20:29)
[2023-06-15] MEDS: TRAVATAN Z OP SCH (20:34)
[2023-06-15] MEDS: ROCEPHIN VIAL 1 GRAM 1 G in NS 100 ML IV 100 ML IV SCH (21:33)
[2023-06-15] MEDS: ZESTRIL TAB 20 MG PO SCH (21:33)
[2023-06-16] MEDS: ULTRAM PO SCH ×4 (00:08→20:06)
[2023-06-16] MEDS ORDERED: SILVADENE ONE (06:14)
[2023-06-16] MEDS: SILVADENE TOP PRN ×2 (06:20→21:09)
[2023-06-16 06:52] LABS: BASOPHILS % (AUTO) 0.1 % (0.2-1.0); HEMATOCRIT 39.1 % (42.0-54.0); HEMOGLOBIN 13.1 g/dL (13.5-18.0); LYMPHOCYTES % (AUTO) 8.9 % (21.0-51.0); MEAN CORPUSCULAR HEMOGLOBIN 31.6 pg (27.0-34.0); MEAN CORPUSCULAR HGB CONC 33.4 g/dL (33.0-35.0); MEAN CORPUSCULAR VOLUME 94.6 fL (80.0-100.0); MEAN PLATELET VOLUME 9.9 fL (7.4-11.0); MONOCYTES # (AUTO) 0.9 x10^3/uL (0.3-0.8); MONOCYTES % (AUTO) 8.1 % (0.0-13.0); NEUTROPHILS % (AUTO) 82.9 % (42.0-75.0); PLATELET COUNT 147 X10^3/uL (150.0-450.0); RED BLOOD COUNT 4.14 X10^6/uL (4.7-6.0); RED CELL DISTRIBUTION WIDTH 15.1 % (11.6-16.5); WHITE BLOOD COUNT 10.9 X10^3/uL (3.6-10.0)
[2023-06-16 07:05] LABS: ALANINE AMINOTRANSFERASE 125 Units/L (12-78); ALBUMIN 1.6 g/dL (3.4-5.0); ALKALINE PHOSPHATASE 464 Units/L (46-116); ASPARTATE AMINO TRANSFERASE 137 Units/L (15-37); BLOOD UREA NITROGEN 42 mg/dL (7-18); CALCIUM 8.2 mg/dL (8.5-10.1); CARBON DIOXIDE 30.2 mmol/L (21-32); CHLORIDE 101 mmol/L (98-107); COR CA(FOR HYPOALB) 10.1 mg/dL (8.5-10.1); CREATININE 1.31 mg/dL (0.70-1.30); GLUCOSE 96 mg/dL (65-99); POTASSIUM 5.5 mmol/L (3.5-5.1); SODIUM 135 mmol/L (136-145); TOTAL PROTEIN 6.7 g/dL (6.4-8.2); eGFR NON BLACK RACES 55 (>60)
--- NOTE | 2023-06-16 07:55 | RAD ---
HISTORYPNEUMONIA Relevant Clinical InformationSTUDYCHEST, 1 [id number]/02/2023FINDINGSTrachea is midline. There is moderate cardiomegaly. There is a fusion of the mid thoracic spine with vertebroplasty unchanged since prior. There is a persistent left lower lower radiopacity with effacement of the diaphragm,there is also unchanged bandlike radiopacities in the right base. There are trace pleural effusions. There is unchanged some upper lobe lung nodules. There has been some interval improvement of perihilar infiltrates. No pneumothorax.IMPRESSIONImprovement of left perihilar radiopacities with persistent left lower lower radiopacity with a trace effusion.Bilateral lung nodules.Electronically signed by: Lelo Day (Jun 16, 2023 07:53:50)
[2023-06-16] MEDS ORDERED: CONSULT PHARMACY - POTASSIUM & MAGNESIUM XX SCH (08:00)
[2023-06-16] MEDS: ALPHAGAN 0.2% OPHTH SOLN OP SCH ×2 (08:31→20:07)
[2023-06-16] MEDS: ROBITUSSIN DM PO SCH ×4 (08:32→20:06)
[2023-06-16] MEDS: LOVENOX INJ 40 MG SYR SC SCH (08:32)
[2023-06-16] MEDS: COSOPT OPTH OP SCH ×2 (08:32→20:07)
[2023-06-16] MEDS: SOLU-Medrol 40 MG VIAL IVP SCH (08:32)
[2023-06-16] MEDS: ASPIRIN 81 MG CHEWTAB PO SCH (08:37)
[2023-06-16] MEDS: DUONEB 0.5 MG/3 MG (3 mL) NEB SCH ×5 (08:43→20:05)
[2023-06-16] MEDS: NS 1,000 ML IV 1,000 ML IV SCH (10:05)
[2023-06-16] MEDS ORDERED: KAYEXALATE SUSP PO NR (16:00)
[2023-06-16] MEDS ORDERED: ZESTRIL TAB 20 MG ONE (19:28)
[2023-06-16] MEDS: ZOCOR TAB 20 MG PO SCH (20:06)
[2023-06-16] MEDS: MILK OF MAGNESIA PO PRN (20:06)
[2023-06-16] MEDS: ZESTRIL TAB 20 MG PO SCH (20:07)
[2023-06-16] MEDS: TRAVATAN Z OP SCH (20:07)
[2023-06-16] MEDS: ROCEPHIN VIAL 1 GRAM 1 G in NS 100 ML IV 100 ML IV SCH (21:09)
[2023-06-17] MEDS: ULTRAM PO SCH ×2 (00:44→08:26)
[2023-06-17] MEDS ORDERED: NICOTINE PATCH TD ONE (05:43)
[2023-06-17 06:04] LABS: BASOPHILS % (AUTO) 0.1 % (0.2-1.0); HEMATOCRIT 39.3 % (42.0-54.0); HEMOGLOBIN 13.2 g/dL (13.5-18.0); LYMPHOCYTES # (AUTO) 0.9 X10^3/uL (1.3-2.9); LYMPHOCYTES % (AUTO) 10.8 % (21.0-51.0); MEAN CORPUSCULAR HEMOGLOBIN 31.4 pg (27.0-34.0); MEAN CORPUSCULAR HGB CONC 33.6 g/dL (33.0-35.0); MEAN CORPUSCULAR VOLUME 93.6 fL (80.0-100.0); MEAN PLATELET VOLUME 9.9 fL (7.4-11.0); MONOCYTES # (AUTO) 0.8 x10^3/uL (0.3-0.8); MONOCYTES % (AUTO) 8.9 % (0.0-13.0); NEUTROPHILS % (AUTO) 80.2 % (42.0-75.0); PLATELET COUNT 161 X10^3/uL (150.0-450.0); RED CELL DISTRIBUTION WIDTH 15.2 % (11.6-16.5); WHITE BLOOD COUNT 8.7 X10^3/uL (3.6-10.0)
--- NOTE | 2023-06-17 06:06 | RAD ---
HISTORYPNEUMONIA Relevant Clinical InformationSTUDYCHEST, 1 [id number]/03/2023FINDINGSThe trachea is midline. The cardiac silhouette is mildly enlarged.. Moderate-sized left pleural effusion with underlying atelectasis or consolidation. Subsegmental atelectasis within the right lung base. The bony thorax is unremarkable.IMPRESSIONStable portable chest.Electronically signed by: Elvin Cain (Jun 17, 2023 06:05:18)
[2023-06-17 06:33] LABS: ALANINE AMINOTRANSFERASE 146 Units/L (12-78); ALBUMIN 1.7 g/dL (3.4-5.0); ALKALINE PHOSPHATASE 498 Units/L (46-116); ASPARTATE AMINO TRANSFERASE 143 Units/L (15-37); BLOOD UREA NITROGEN 41 mg/dL (7-18); CALCIUM 8.4 mg/dL (8.5-10.1); CARBON DIOXIDE 32.6 mmol/L (21-32); CHLORIDE 101 mmol/L (98-107); COR CA(FOR HYPOALB) 10.2 mg/dL (8.5-10.1); CREATININE 1.26 mg/dL (0.70-1.30); GLUCOSE 87 mg/dL (65-99); POTASSIUM 5.5 mmol/L (3.5-5.1); SODIUM 136 mmol/L (136-145); TOTAL PROTEIN 6.7 g/dL (6.4-8.2); eGFR NON BLACK RACES 58 (>60)
[2023-06-17] MEDS: LOVENOX INJ 40 MG SYR SC SCH (08:24)
[2023-06-17] MEDS: SOLU-Medrol 40 MG VIAL IVP SCH (08:24)
[2023-06-17 08:27] VITALS: RESP 18
[2023-06-17] MEDS: ALPHAGAN 0.2% OPHTH SOLN OP SCH (08:27)
[2023-06-17] MEDS: ASPIRIN 81 MG CHEWTAB PO SCH (08:27)
[2023-06-17] MEDS: COSOPT OPTH OP SCH (08:28)
[2023-06-17] MEDS: ROBITUSSIN DM PO SCH (08:28)
[2023-06-17] MEDS: DUONEB 0.5 MG/3 MG (3 mL) NEB SCH (08:45)
[2023-06-17] MEDS ORDERED: NICOTINE PATCH TD SCH (09:00)
[2023-06-17] MEDS ORDERED: KAYEXALATE SUSP PO NR (09:00)
[2023-06-17] MEDS ORDERED: CHECK PATCH XX SCH (09:00)
[2023-06-17 09:30] VITALS: O2SAT 95
[2023-06-17 09:35] VITALS: BP 164/84; PULSE 62; TEMP 97.7
[2023-06-17] MEDS ORDERED: FLOMAX PO SCH (10:00)
[2023-06-17] MEDS: NS 1,000 ML IV 1,000 ML IV SCH (10:08)
== END 2023-06-17 11:50 | disposition home health service (06) | DRG 195 ==
LOC: ER 16:17 → MED/SURG 16:17
PROVIDERS: ADMIT Internal Medicine; ATTEND Internal Medicine
DX: J18.8 Other pneumonia, unspecified organism; R07.89 Other chest pain; I10 Essential (primary) hypertension; N28.89 Other specified disorders of kidney and ureter; R09.02 Hypoxemia; R91.8 Other nonspecific abnormal finding of lung field; R94.31 Abnormal electrocardiogram [ECG] [EKG]; M51.36 Other intervertebral disc degeneration, lumbar region; E78.2 Mixed hyperlipidemia

== ENCOUNTER 2023-06-19 10:13 | Observation (INO) ==
--- NOTE | 2023-06-19 10:31 | DR.DIZZY ---
HPI Time seen Time Seen by Provider: 06/19/23 10:31 Complaint Chief Complaint Doctor Comments: Patient presents with weakness and Rt back pain.He was d/c from [facility] 06/17/2023 where he was treated for Pneumonia in his left lung.A mass was discovered on patient's Lt kidney and he is suppose to f/u outpatient with Dr Merida. Daughter states that patient has had a change in his mental status and ability to ambulate.Daughter states that he is confused,cannot carry on a conversation,is eating less since he arrived at home,cannot ambulate.Family denies: head injury,fall,fever,n,v,back pain,chest pain,abdl p ain,extremity pain Context Stroke Symptoms: Weakness of limb PMH PMH Past Medical History: Arthritis and Hypertension Past Surgical History: Yes Surgical History: Ortho Surgery and Other Social History Do you use any recreational Drugs:: No ROS Review of Systems Constitutional: Malaise, Weakness and Loss of Appetite Eyes: No Symptoms Reported ENTM: No Symptoms Reported Respiratoy: No Symptoms Reported Cardiovascular: No Symptoms Reported Gastrointestinal/Abdominal: No Symptoms Reported Genitourinary: No Symptoms Reported Neurological: Weakness and Problems Walking Musculoskeletal: No Symptoms Reported Integumentary: No Symptoms Reported Hematologic/Lymphatic: No Symptoms Reported Endocrine: No Symptoms Reported Psychiatric: No Symptoms Reported All Other Systems: Reviewed and Negative PE Vital Signs Vitals: Vital Signs Temperature 98.6 F Pulse Rate 74 Pulse Rate 80 Pulse Rate 80 Pulse Rate 80 Pulse Rate 84 Pulse Rate 81 Pulse Rate 97 Pulse Rate 84 Pulse Rate 83 Pulse Rate 83 Pulse Rate 79 Pulse Rate 87 Pulse Rate 92 Pulse Rate 88 Pulse Rate 93 Pulse Rate 93 Respiratory Rate 18 Respiratory Rate 21 Respiratory Rate 27 Respiratory Rate 32 Respiratory Rate 27 Respiratory Rate 29 Respiratory Rate 35 Respiratory Rate 28 Respiratory Rate 30 Respiratory Rate 31 Respiratory Rate 27 Respiratory Rate 32 Respiratory Rate 28 Respiratory Rate 24 Respiratory Rate 26 Respiratory Rate 18 Blood Pressure 179/88 Blood Pressure 149/80 Blood Pressure 148/79 Blood Pressure 157/77 Blood Pressure 157/76 Blood Pressure 164/83 Blood Pressure 163/96 Blood Pressure 163/93 O2 Sat by Pulse Oximetry 96 O2 Sat by Pulse Oximetry 94 O2 Sat by Pulse Oximetry 95 O2 Sat by Pulse Oximetry 95 O2 Sat by Pulse Oximetry 95 O2 Sat by Pulse Oximetry 95 O2 Sat by Pulse Oximetry 97 O2 Sat by Pulse Oximetry 97 O2 Sat by Pulse Oximetry 97 O2 Sat by Pulse Oximetry 97 O2 Sat by Pulse Oximetry 96 O2 Sat by Pulse Oximetry 95 O2 Sat by Pulse Oximetry 95 O2 Sat by Pulse Oximetry 95 O2 Sat by Pulse Oximetry 95 General Limitations: No Limitations General Appearance: Alert and In No Apparent Distress Head Head Exam: Normal Inspection Eyes Eye exam: Normal Appearance ENT ENT Exam: Normal Exam, Normal Oropharynx and Normal External Ear Exam Neck Neck Exam: Normal Inspection and Full ROM Chest Chest Inspection: Normal Inspection Respiratory Respiratory Exam: Normal Lung Sounds Bilat Respiratory Exam: Bilateral: Clear to Auscultation Cardiovascular Cardiovascular Exam: Regular Rate and Normal Rhythm Abdominal Exam Abdominal Exam: Normal Inspection, Normal Bowel Sounds and Soft Rectal Rectal Exam: Deferred Extremeties Extremities Exam: Normal Inspection and Full ROM Back Back Exam: Normal Inspection and Full ROM Neurologic Neurological Exam: Alert and Oriented X3 Psychiatric Psychiatric Exam: Normal Affect and Normal Mood Skin Skin Exam: Warm, Dry, Intact and Normal Color MDM Differential Diagnosis Differential Diagnosis Comment: Dehydration,electrolyte abnormality,UTI COURSE Treatment Treatment: Patient was brought to a room and iv access was initiated.He received a NS 500ml bolus iv.He has a magnesium 1.7 and is receiving 2 g iv in the Ed. Patient's U/A is negative and his wbc is nml.Discussed case with Dr Nguyen who will admit the patient to his service.Patient has been stable in the ED. ROR Labs Reviewed Laboratory Results Reviewed?: Yes 06/19/23 10:53 06/19/23 10:53 Laboratory: WBC 8.6 X10^3/uL (3.6-10.0) 06/19/23 10:53 RBC 4.37 X10^6/uL (4.7-6.0) L 06/19/23 10:53 Hgb 13.5 g/dL (13.5-18.0) 06/19/23 10:53 Hct 40.5 % (42.0-54.0) L 06/19/23 10:53 MCV 92.8 fL (80.0-100.0) 06/19/23 10:53 MCH 31.0 pg (27.0-34.0) 06/19/23 10:53 MCHC 33.4 g/dL (33.0-35.0) 06/19/23 10:53 RDW 14.5 % (11.6-16.5) 06/19/23 10:53 Plt Count 173 X10^3/uL (150.0-450.0) 06/19/23 10:53 MPV 9.3 fL (7.4-11.0) 06/19/23 10:53 Neut % (Auto) 79.1 % (42.0-75.0) H 06/19/23 10:53 Lymph % (Auto) 12.1 % (21.0-51.0) L 06/19/23 10:53 [place] % (Auto) 8.2 % (0.0-13.0) 06/19/23 10:53 Eos % (Auto) 0.3 % (0.9-2.9) L 06/19/23 10:53 Baso % (Auto) 0.3 % (0.2-1.0) 06/19/23 10:53 Neut # (Auto) 6.8 x10^3/uL (2.2-4.8) H 06/19/23 10:53 Lymph # (Auto) 1.0 X10^3/uL (1.3-2.9) L 06/19/23 10:53 [place] # (Auto) 0.7 x10^3/uL (0.3-0.8) 06/19/23 10:53 Eos # (Auto) 0.0 x10^3/uL (0.0-0.2) 06/19/23 10:53 Baso # (Auto) 0.0 X10^3/uL (0.0-0.1) 06/19/23 10:53 Absolute Nucleated RBC 0.0 /100WBC 06/19/23 10:53 Sodium 132 mmol/L (136-145) L 06/19/23 10:53 Corrected Sodium TNP 06/19/23 10:53 Potassium 4.8 mmol/L (3.5-5.1) 06/19/23 10:53 Chloride 98 mmol/L (98-107) 06/19/23 10:53 Carbon Dioxide 30.0 mmol/L (21-32) 06/19/23 10:53 BUN 41 mg/dL (7-18) H 06/19/23 10:53 Creatinine 1.15 mg/dL (0.70-1.30) 06/19/23 10:53 Est GFR (MDRD) Af Amer > 60 (>60) 06/19/23 10:53 Est GFR (MDRD) Non-Af > 60 (>60) 06/19/23 10:53 Glucose 103 mg/dL (65-99) H 06/19/23 10:53 Calcium 8.3 mg/dL (8.5-10.1) L 06/19/23 10:53 Corrected Calcium 10.1 mg/dL (8.5-10.1) 06/19/23 10:53 Magnesium 1.7 mg/dL (2.0-2.9) L 06/19/23 10:53 Total Bilirubin 0.50 mg/dL (0.2-1.0) 06/19/23 10:53 AST 101 Units/L (15-37) H 06/19/23 10:53 ALT 117 Units/L (12-78) H 06/19/23 10:53 Alkaline Phosphatase 501 Units/L (46-116) H 06/19/23 10:53 Total Protein 6.8 g/dL (6.4-8.2) 06/19/23 10:53 Albumin 1.8 g/dL (3.4-5.0) L 06/19/23 10:53 Globulin 5.0 g/dL (2.5-4.5) H 06/19/23 10:53 Albumin/Globulin Ratio 0.4 Ratio (1.1-2.1) L 06/19/23 10:53 Specimen Type Clean catch urine 06/19/23 10:59 Urine Color Yellow (YELLOW) 06/19/23 10:59 Urine Appearance Clear (CLEAR) 06/19/23 10:59 Urine pH 6.0 (5.0 - 8.0) 06/19/23 10:59 Ur Specific [place] 1.015 (1.000-1.030) 06/19/23 10:59 Urine Protein 1+ (NEGATIVE) 06/19/23 10:59 Urine Glucose (UA) Negative (NEGATIVE) 06/19/23 10:59 Urine Ketones Negative (NEGATIVE) 06/19/23 10:59 Urine Blood Negative (NEGATIVE) 06/19/23 10:59 Urine Nitrite Negative (NEGATIVE) 06/19/23 10:59 Urine Bilirubin Negative (NEGATIVE) 06/19/23 10:59 Urine Urobilinogen Normal (NORMAL) 06/19/23 10:59 Ur Leukocyte Esterase Negative (NEGATIVE) 06/19/23 10:59 Urine RBC 0-2 /HPF (0-3) 06/19/23 10:59 Urine WBC 0-2 /HPF (0-5) 06/19/23 10:59 Ur Squamous Epith Cells Rare /HPF (NEGATIVE) 06/19/23 10:59 Urine Bacteria Trace /HPF (NEGATIVE) 06/19/23 10:59 Ur Culture Indicated? No/not indicated 06/19/23 10:59 Opioid Opioid Risk Tool Age (Trevor box if 16-45): No Total: 0 Total Score Risk Category: Low Risk Copyright: Jordy SANCHEZ predicting aberrant behaviors Discharge Plan Diagnosis Discharge Problem: Weakness Discharge Plan Patient Disposition: 09 ADMITTED INPATIENT Condition: Stable Prescriptions: No Action lisinopril 20 mg tablet 20 mg PO QDAY lovastatin 40 mg tablet 40 mg PO QDAY travoprost 0.004 % drops 2 drp OPHTHALMIC (EYE) QPM tramadol 50 mg tablet 50 mg PO Q6H PRN brimonidine 0.2 % drops 1 drp OPHTHALMIC (EYE) BID dorzolamide-timolol 22.3-6.8 mg/mL drops 1 drp OPHTHALMIC (EYE) BID ipratropium-albuterol 0.5 mg-3 mg(2.5 mg base)/3 mL Solution For Nebulization 3 ml NEB QID Qty: 120 0RF cefdinir 300 mg Capsule 300 mg PO Q12H Qty: 20 0RF hydrocodone-chlorpheniramine 10-8 mg/5 mL Suspension,Extended Rel 12 Hr 2.5 ml PO BID MDD 1 PRNQty: 1 0RF tamsulosin [Flomax] 0.4 mg Capsule 0.4 mg PO QDAY Qty: 30 0RF Health Concerns: Post Hospitalization: new medications and changes needed to prevent readmission or further decline. Pt educated and given instructions on all concerns. Plan of Treatment: Continue with present treatment and follow up plan. Pt is to keep follow up appointment as instructed and take medications as ordered. Orders to Discharge Patient Discharge Orders: Transfer (Routine); Ordered 06/19/23 Ordered By: Adela Jones Follow ups/Referrals Follow ups/Referrals: ZENON BENAVIDES [Primary Care Provider] - 3 days Instructions Stand Alone Forms: Post Hospital Follow Up Care
[2023-06-19 10:34] VITALS: BMI 20.3
[2023-06-19] MEDS ORDERED: NS 500 ML IV 500 ML IV ONE ×2 (10:44→10:45)
[2023-06-19 11:02] LABS: BASOPHILS % (AUTO) 0.3 % (0.2-1.0); EOSINOPHILS % (AUTO) 0.3 % (0.9-2.9); HEMATOCRIT 40.5 % (42.0-54.0); HEMOGLOBIN 13.5 g/dL (13.5-18.0); LYMPHOCYTES % (AUTO) 12.1 % (21.0-51.0); MEAN CORPUSCULAR HGB CONC 33.4 g/dL (33.0-35.0); MEAN CORPUSCULAR VOLUME 92.8 fL (80.0-100.0); MEAN PLATELET VOLUME 9.3 fL (7.4-11.0); MONOCYTES # (AUTO) 0.7 x10^3/uL (0.3-0.8); MONOCYTES % (AUTO) 8.2 % (0.0-13.0); NEUTROPHILS # (AUTO) 6.8 x10^3/uL (2.2-4.8); NEUTROPHILS % (AUTO) 79.1 % (42.0-75.0); PLATELET COUNT 173 X10^3/uL (150.0-450.0); RED BLOOD COUNT 4.37 X10^6/uL (4.7-6.0); RED CELL DISTRIBUTION WIDTH 14.5 % (11.6-16.5); WHITE BLOOD COUNT 8.6 X10^3/uL (3.6-10.0)
[2023-06-19 11:13] LABS: ALANINE AMINOTRANSFERASE 117 Units/L (12-78); ALBUMIN 1.8 g/dL (3.4-5.0); ALKALINE PHOSPHATASE 501 Units/L (46-116); ASPARTATE AMINO TRANSFERASE 101 Units/L (15-37); BLOOD UREA NITROGEN 41 mg/dL (7-18); CALCIUM 8.3 mg/dL (8.5-10.1); CHLORIDE 98 mmol/L (98-107); COR CA(FOR HYPOALB) 10.1 mg/dL (8.5-10.1); CREATININE 1.15 mg/dL (0.70-1.30); GLUCOSE 103 mg/dL (65-99); MAGNESIUM 1.7 mg/dL (2.0-2.9); POTASSIUM 4.8 mmol/L (3.5-5.1); SODIUM 132 mmol/L (136-145); TOTAL PROTEIN 6.8 g/dL (6.4-8.2); eGFR NON BLACK RACES > 60 (>60)
[2023-06-19 11:13] LABS: BILIRUBIN,URINE NEGATIVE (NEGATIVE); BLOOD/HEMOGLOBIN,URINE NEGATIVE (NEGATIVE); GLUCOSE, URINE NEGATIVE (NEGATIVE); KETONES,URINE NEGATIVE (NEGATIVE); LEUKOCYTE ESTERASE ,URINE NEGATIVE (NEGATIVE); NITRITES,URINE NEGATIVE (NEGATIVE); PROTEIN,URINE 1+ (NEGATIVE); UROBILINOGEN,URINE NORMAL (NORMAL)
[2023-06-19 11:26] LABS: APPEARANCE,URINE CLEAR (CLEAR); BACTERIA,URINE TRACE /HPF (NEGATIVE); COLOR,URINE YELLOW (YELLOW); RBC,URINE 0-2 /HPF (0-3); SQUAMOUS EPITHELIAL CELL,UR RARE /HPF (NEGATIVE)
[2023-06-19] MEDS ORDERED: MAGNESIUM SULFATE 1 GRAM/100 mL PREMIX 1 G/100 ML BAG IV ONE ×4 (11:39→13:33)
[2023-06-19] MEDS ORDERED: NS 1,000 ML IV 1,000 ML ONE (11:51)
[2023-06-19] MEDS: NS 1,000 ML IV 1,000 ML IV SCH (12:01)
[2023-06-19] MEDS ORDERED: TUSSIONEX PENNKINETIC SUSP PO PRN (14:20)
[2023-06-19] MEDS ORDERED: CONSULT PHARMACY - POTASSIUM & MAGNESIUM XX SCH (14:20)
[2023-06-19] MEDS: OMNICEF CAP 300 MG PO SCH ×2 (15:37→20:42)
[2023-06-19] MEDS: DUONEB 0.5 MG/3 MG (3 mL) NEB SCH ×2 (17:57→20:38)
[2023-06-19] MEDS: PULMICORT NEB TX 0.5 MG NEB SCH (20:38)
[2023-06-19] MEDS: TRAVATAN Z OP SCH (20:48)
[2023-06-19] MEDS: ALPHAGAN 0.2% OPHTH SOLN OP SCH (20:49)
[2023-06-19] MEDS ORDERED: COSOPT OPTH OP SCH (21:00)
[2023-06-20 05:25] LABS: BASOPHILS % (AUTO) 0.2 % (0.2-1.0); EOSINOPHILS % (AUTO) 0.6 % (0.9-2.9); HEMATOCRIT 40.8 % (42.0-54.0); HEMOGLOBIN 13.7 g/dL (13.5-18.0); LYMPHOCYTES # (AUTO) 0.9 X10^3/uL (1.3-2.9); LYMPHOCYTES % (AUTO) 11.1 % (21.0-51.0); MEAN CORPUSCULAR HEMOGLOBIN 31.2 pg (27.0-34.0); MEAN CORPUSCULAR HGB CONC 33.7 g/dL (33.0-35.0); MEAN CORPUSCULAR VOLUME 92.8 fL (80.0-100.0); MEAN PLATELET VOLUME 10.1 fL (7.4-11.0); MONOCYTES # (AUTO) 0.6 x10^3/uL (0.3-0.8); MONOCYTES % (AUTO) 7.3 % (0.0-13.0); NEUTROPHILS # (AUTO) 6.8 x10^3/uL (2.2-4.8); NEUTROPHILS % (AUTO) 80.8 % (42.0-75.0); PLATELET COUNT 162 X10^3/uL (150.0-450.0); WHITE BLOOD COUNT 8.4 X10^3/uL (3.6-10.0)
[2023-06-20 05:40] LABS: ALANINE AMINOTRANSFERASE 96 Units/L (12-78); ALBUMIN 1.8 g/dL (3.4-5.0); ALKALINE PHOSPHATASE 436 Units/L (46-116); ASPARTATE AMINO TRANSFERASE 76 Units/L (15-37); BLOOD UREA NITROGEN 35 mg/dL (7-18); CALCIUM 8.3 mg/dL (8.5-10.1); CHLORIDE 100 mmol/L (98-107); COR CA(FOR HYPOALB) 10.1 mg/dL (8.5-10.1); CREATININE 1.06 mg/dL (0.70-1.30); GLUCOSE 84 mg/dL (65-99); MAGNESIUM 2.1 mg/dL (2.0-2.9); POTASSIUM 4.9 mmol/L (3.5-5.1); SODIUM 134 mmol/L (136-145); TOTAL PROTEIN 6.5 g/dL (6.4-8.2); eGFR NON BLACK RACES > 60 (>60)
--- NOTE | 2023-06-20 08:49 | RAD ---
EXAM:CHEST, 1 VIEWHISTORY:WEAKNESS, PNEUMONIACOMPARISON:06/17/2023FINDINGS:T he trachea is midline. The cardiac silhouette is unremarkable. Pleural-parenchymal opacity in the left lower lobe is observed consistent with layering pleural effusion and underlying infiltrate. 10 mm pulmonary nodule within the right mid lung zone is observed and stable when compared to prior chest CT dated 06/12/2023. The bony thorax is unremarkable.IMPRESSION:Left lower lobe pleural-parenchymal opacity consistent with bronchopneumonia and parapneumonic effusion.10 mm pulmonary nodule within the right mid lung zone is observed. Continued follow up will be needed.THIS IS AN ELECTRONICALLY VERIFIED FINAL REPORT06/20/2023 8:45 AM - Electronically signed by Keven Reyes MD
[2023-06-20] MEDS: DUONEB 0.5 MG/3 MG (3 mL) NEB SCH ×4 (09:00→21:05)
[2023-06-20] MEDS: PULMICORT NEB TX 0.5 MG NEB SCH ×2 (09:00→21:05)
[2023-06-20] MEDS ORDERED: ZESTRIL TAB 20 MG PO SCH (09:00)
[2023-06-20] MEDS ORDERED: LASIX IVP SCH (09:00)
[2023-06-20] MEDS ORDERED: MICRO K EXTEN CAP 10 MEQ PO SCH (09:00)
--- NOTE | 2023-06-20 09:14 | EKG ---
Test Reason : weakness, sob Blood Pressure : */* mmHG Vent. Rate : 88 BPM Atrial Rate : 88 BPM P-R Int : 156 ms QRS Dur : 86 ms QT Int : 348 ms P-R-T Axes : 67 -41 38 degrees QTc Int : 421 ms Sinus rhythm with premature atrial complexes Left axis deviation Anterior infarct , age undetermined Abnormal ECG When compared with ECG of 12-JUN-2023 16:34, Nonspecific T wave abnormality now evident in Anterior leads Confirmed by Jovan Alarcon ([id number]) on 06/21/2023 8:05:06 AM Referred By: Confirmed By: Jovan Alarcon
[2023-06-20] MEDS: OMNICEF CAP 300 MG PO SCH (09:48)
[2023-06-20] MEDS: LOVENOX INJ 40 MG SYR SC SCH (09:49)
[2023-06-20] MEDS: FLOMAX PO SCH (09:49)
[2023-06-20] MEDS: LIPITOR TAB 10 MG PO SCH (09:49)
[2023-06-20] MEDS: TIMOPTIC 0.5% EYE DROPS OP SCH ×2 (09:50→21:43)
[2023-06-20] MEDS: ALPHAGAN 0.2% OPHTH SOLN OP SCH ×2 (09:51→21:44)
[2023-06-20] MEDS: TRUSOPT PLUS (OPHTH) AFFEYE SCH ×2 (09:51→21:42)
[2023-06-20] MEDS: ULTRAM PO PRN ×2 (10:52→20:03)
--- NOTE | 2023-06-20 14:58 | CT ---
HISTORYAltered mental statusSTUDYCT brain without contrastCOMPARISONNoneTECHNIQUEMultiple axial images of the brain were obtained from the skull base to the vertex [without] administration of IV contrast.Dose reduction techniques including Automated Exposure Control (AEC) and adjustment of mA and kV were utlized.FINDINGS[No acute intraparenchymal hemorrhage or mass can be identified.] [No extra-axial fluid collections are seen.] [No alteration in the attenuation of the brain parenchyma can be identified to suggest acute or subacute ischemic change.] Scattered small vessel ischemic changes and age-appropriate atrophy are noted. 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
[2023-06-20 17:50] LABS: ABG BASE EXCESS 0.7 mmol/L (-2.0-2.0); ABG HCO3 27.4 mmol/L (22-26)
[2023-06-20 17:51] LABS: ABG ALLEN TEST POS
--- NOTE | 2023-06-20 18:06 | DR.H&P ---
H&P - History & Physical for Day of: H&P Date: 06/19/23 - Chief Complaint Chief Complaint: SOB, WEAKNESS, CONFUSION - History of Present Illness History of Present Illness: PT IS 88 WM, ER ADMISSION AFTER PRESENTING WITH CO CONFUSION AND WEAKNESS PER FAMILY. PT WAS D/C HOME FROM [facility] ON TUESDAY WITH NEWLY DX LEFT RENAL MASS AND POSSIBLE METASTATIC LUNG DISEASE. PT WAS TREATED FOR PNEUMONIA AND SENT HOME ON PO CEFDINIR AND SUPPLEMENTAL O2. PTS FAMILY REPORTS HE IS SLEEPING ALL THE TIME AND CANNOT GET OUT OF THE BED. PT HAS BEEN CONFUSED AND UNCOORDINATED. PT ADMITTED FOR TREATMENT AND EVALUATION OF ACUTE ILLNESS. - Past Medical History Past Medical History: Hypertension, Arthritis - Past Surgical History Surgical History: Ortho Surgery, Other (RIGHT NEPHRECTOMY ) - Family History Family Medical History: Diabetes Mellitus, Cancer, [place], Heart Failure, Hypertension - Social History Does patient currently use any type of tobacco product: Yes Have you used tobacco products in the last 12 months: Yes Type of Tobacco Use: Cigarettes How many years tobacco product used: 75 Does any household member use tobacco: Yes Alcohol Use: None Drug Use: None - Review of Systems Constitutional: Weakness, Malaise. denies: Fever Eyes: Vision Change (CHRONIC VISION IMPAIRMENT) Respiratory: Shortness of Breath, SOB with Excertion, Pleuritic Pain Cardiovascular: No Symptoms Reported Gastrointestinal: Nausea Genitourinary: Frequency Musculoskeletal: Back Pain Skin: No Symptoms Reported Neurological: Weakness - Physical Exam Vital Signs: Vital Signs Temperature 97.8 F Temperature 97.4 F Pulse Rate [Apical] 93 Pulse Rate [Apical] 96 Respiratory Rate 18 Respiratory Rate 18 Respiratory Rate 20 Blood Pressure [Right Arm] 121/68 Blood Pressure [Right Arm] 89/56 O2 Sat by Pulse Oximetry 96 O2 Sat by Pulse Oximetry 96 Oriented: Normal Eyes: Blurred Vision Ear: Normal Nose: Normal Throat: Normal Respiratory: RLL Diminished, LLL Diminished Cardiovascular: Normal. negative: Edema : Normal Auscultation: Bowel Sounds: Normal Palpation: Normal Tenderness: Normal Skin: Decreased Turgur Musculoskeletal: Back:Thoracic, Back:Lumbar Psychiatric: Anxiety Affect: Anxious Speech Pattern: Clear, Appropriate - Assessment/Plan (1) Weakness Status: Acute Plan: ADMIT, GENTLE IV HYDRATION. STRICT I&OS. CXR ON ADMISSION, RESP CONSULT. IV ATBX, BP CONTROL. VERIFY HOME MEDICATION, SUPPLEMENTAL O2. RESP THERAPY, PHYSICAL THERAPY CONSULT (2) Lung nodule, multiple Status: Acute (3) Left lower lobe pneumonia Status: Acute (4) Renal mass, left Status: Acute (5) Hypertension Status: Acute - Allergies Allergies/Adverse Reactions: Allergies Allergy/AdvReac Type Severity Reaction Status Date / Time morphine AdvReac Verified 06/19/23 10:29 - Medications Home Medications: Home Medications Medication Instructions Recorded Confirmed brimonidine 0.2 % eye drops 1 drp ophthalmic (eye) BID 06/12/23 06/19/23 lisinopril 20 mg tablet 20 mg PO QDAY 06/12/23 06/19/23 lovastatin 40 mg tablet 40 mg PO QDAY 06/12/23 06/19/23 tramadol 50 mg tablet 50 mg PO Q6H PRN 06/12/23 06/19/23 brimonidine 0.2 % eye drops 1 drp ophthalmic (eye) BID 06/19/23 06/19/23 cefdinir 300 mg capsule 300 mg PO BID 06/19/23 06/19/23 travoprost 0.004 % eye drops 2 drp ophthalmic (eye) QPM 06/19/23 06/19/23 Previous Rx's Medication Instructions Recorded ipratropium 0.5 mg-albuterol 3 mg 3 ml NEB QID #120 units 06/17/23 (2.5 mg base)/3 mL nebulization soln tamsulosin 0.4 mg capsule (Flomax) 0.4 mg PO QDAY #30 caps 06/17/23
[2023-06-20] MEDS: SOLU-Medrol 40 MG VIAL IVP SCH ×2 (18:48→21:44)
[2023-06-20] MEDS: ROCEPHIN VIAL 1 GRAM 1 G in NS 100 ML IV 100 ML IV SCH (18:48)
[2023-06-20] MEDS ORDERED: ZESTRIL TAB 20 MG ONE (21:03)
[2023-06-20] MEDS: ZESTRIL TAB 20 MG PO SCH (21:45)
[2023-06-20] MEDS: NS 1,000 ML IV 1,000 ML IV SCH (21:45)
[2023-06-20] MEDS: TRAVATAN Z OP SCH (22:00)
[2023-06-21] MEDS: ULTRAM PO PRN ×4 (02:15→20:44)
[2023-06-21] MEDS: SOLU-Medrol 40 MG VIAL IVP SCH ×4 (05:42→22:14)
[2023-06-21 06:06] LABS: BASOPHILS % (AUTO) 0.3 % (0.2-1.0); HEMATOCRIT 39.1 % (42.0-54.0); HEMOGLOBIN 13.1 g/dL (13.5-18.0); LYMPHOCYTES # (AUTO) 0.5 X10^3/uL (1.3-2.9); LYMPHOCYTES % (AUTO) 6.3 % (21.0-51.0); MEAN CORPUSCULAR HEMOGLOBIN 31.1 pg (27.0-34.0); MEAN CORPUSCULAR HGB CONC 33.4 g/dL (33.0-35.0); MEAN PLATELET VOLUME 9.8 fL (7.4-11.0); MONOCYTES # (AUTO) 0.1 x10^3/uL (0.3-0.8); MONOCYTES % (AUTO) 1.5 % (0.0-13.0); NEUTROPHILS # (AUTO) 6.9 x10^3/uL (2.2-4.8); NEUTROPHILS % (AUTO) 91.9 % (42.0-75.0); PLATELET COUNT 159 X10^3/uL (150.0-450.0); RED BLOOD COUNT 4.21 X10^6/uL (4.7-6.0); RED CELL DISTRIBUTION WIDTH 14.9 % (11.6-16.5); WHITE BLOOD COUNT 7.5 X10^3/uL (3.6-10.0)
[2023-06-21 06:24] LABS: ALANINE AMINOTRANSFERASE 87 Units/L (12-78); ALBUMIN 1.7 g/dL (3.4-5.0); ALKALINE PHOSPHATASE 453 Units/L (46-116); ASPARTATE AMINO TRANSFERASE 58 Units/L (15-37); BLOOD UREA NITROGEN 43 mg/dL (7-18); CALCIUM 8.5 mg/dL (8.5-10.1); CARBON DIOXIDE 28.7 mmol/L (21-32); CHLORIDE 100 mmol/L (98-107); COR CA(FOR HYPOALB) 10.3 mg/dL (8.5-10.1); COR NA(FOR HYPERGLY) 133 mmol/L (136-145); CREATININE 1.18 mg/dL (0.70-1.30); GLUCOSE 153 mg/dL (65-99); POTASSIUM 5.5 mmol/L (3.5-5.1); SODIUM 132 mmol/L (136-145); TOTAL PROTEIN 6.5 g/dL (6.4-8.2); eGFR NON BLACK RACES > 60 (>60)
[2023-06-21 06:32] LABS: BAND NEUTROPHILS % 6 % (0-10); PLATELET MORPHOLOGY COMMENT NORMAL (NORMAL)
--- NOTE | 2023-06-21 08:04 | RAD ---
HISTORYFollow-up pneumoniaSTUDYChest AP [id number]/07/2023FINDINGSHear t size is normal. Tessa are normal. Abnormal density remains in the left lower lobe partially due to a left pleural effusion. Underlying consolidation or atelectasis may be present. Remainder of the lung maurer are free of acute infiltrates. Previously described right lung nodule b not well demonstrated on today's examination.. Bony thorax is unremarkable.IMPRESSIONNo change abnormal parenchymal density left lower hemithorax partially due to left pleural effusion however underlying infiltrate and/or atelectasis likely present.Electronically signed by: MICHAEL GUPTA (Jun 21, 2023 08:03:19)
[2023-06-21] MEDS: PULMICORT NEB TX 0.5 MG NEB SCH ×2 (08:58→20:28)
[2023-06-21] MEDS: DUONEB 0.5 MG/3 MG (3 mL) NEB SCH ×4 (08:58→20:28)
[2023-06-21] MEDS: LIPITOR TAB 10 MG PO SCH (09:16)
[2023-06-21] MEDS: ROCEPHIN VIAL 1 GRAM 1 G in NS 100 ML IV 100 ML IV SCH (09:16)
[2023-06-21] MEDS: FLOMAX PO SCH (09:16)
[2023-06-21] MEDS: LOVENOX INJ 40 MG SYR SC SCH (09:16)
[2023-06-21] MEDS: ALPHAGAN 0.2% OPHTH SOLN OP SCH ×2 (09:17→20:47)
[2023-06-21] MEDS: TRUSOPT PLUS (OPHTH) AFFEYE SCH ×2 (09:17→20:46)
[2023-06-21] MEDS: TIMOPTIC 0.5% EYE DROPS OP SCH ×2 (09:17→20:47)
[2023-06-21] MEDS: NS 1,000 ML IV 1,000 ML IV SCH (15:35)
[2023-06-21 17:07] VITALS: RESP 20
--- NOTE | 2023-06-21 18:16 | PCM.PROG ---
Progress Note - Progress Note for Day of Date of Exam: 06/21/23 - Subjective Subjective: PT IS 88 WM CURRENTLY RECEIVING TREATMENT FOR SOB AND WEAKNESS DUE TO PNEUMONIA AND POSSIBLE METASTATIC LUNG DISEASE. PT IS ON IV ATBX, DUO NEBS, SUPPLEMENTAL O2 AND SOLU MEDROL. PT HAS AGREED TO A TRANSFER TO [facility] FOR EVALUATION AND TREATMENT OF SUSPECTED MALIGNANT DISEASE WITH ACUTE RESPIRATORY FAILURE REQUIRING CONTINUOUS SUPPLEMENTAL O2. HIS CHEST XRAY THIS MORNING CONTINUES WITH PNEUMONIA AND LEFT PLEURAL EFFUSION. PT HAS LEFT PLEURITIC PAIN, CONTROLLED WITH TUSSIONEX AND TRAMADOL. PT TOLERATED SOLU MEDROL WELL WITH IMPROVING APPETITE THIS MORNING. PT HAD DIFFUSE WEAKNESS AND MARKED SOB WITH MINIMAL EXERTION. - Past Medical Family Social History Past Med/Fam/Surg Hx: No changes since H&P Allergies: Allergies morphine Adverse Reaction (Verified 06/19/23 10:29) - Review of Systems ROS: No change since H&P - Vital Signs and I&O's Vital Signs: Vital Signs Temperature 97.7 F Temperature 97.8 F Pulse Rate [Apical] 73 Pulse Rate [Apical] 71 Pulse Rate 76 Respiratory Rate 20 Respiratory Rate 18 Respiratory Rate 18 Respiratory Rate 18 Respiratory Rate 18 Blood Pressure [Right Arm] 117/64 Blood Pressure [Right Arm] 118/62 O2 Sat by Pulse Oximetry 97 O2 Sat by Pulse Oximetry 94 O2 Sat by Pulse Oximetry 97 Intake and Output: Intake & Output 06/19/23 06/20/23 06/21/23 06/22/23 11:59 11:59 11:59 11:59 Intake Total 402 / 402 1613 / 1613 600 / 600 Output Total 150 / 150 500 / 500 Balance 252 / 252 1113 / 1113 600 / 600 - Physical Exam Oriented: Normal Eyes: Blurred Vision Ear: Normal Nose: Normal Throat: Normal Respiratory: Diminished Cardiovascular: Normal. negative: Edema : Normal Auscultation: Bowel Sounds: Normal Tenderness: Normal Skin: Decreased Turgur Musculoskeletal: Back:Thoracic, Back:Lumbar Psychiatric: Anxiety Affect: Anxious Speech Pattern: Clear - Laboratory and Diagnostics Result Diagrams: 06/21/23 05:38 06/21/23 05:38 Labs: Laboratory WBC 7.5 X10^3/uL (3.6-10.0) 06/21/23 05:38 RBC 4.21 X10^6/uL (4.7-6.0) L 06/21/23 05:38 Hgb 13.1 g/dL (13.5-18.0) L 06/21/23 05:38 Hct 39.1 % (42.0-54.0) L 06/21/23 05:38 MCV 93.0 fL (80.0-100.0) 06/21/23 05:38 MCH 31.1 pg (27.0-34.0) 06/21/23 05:38 MCHC 33.4 g/dL (33.0-35.0) 06/21/23 05:38 RDW 14.9 % (11.6-16.5) 06/21/23 05:38 Plt Count 159 X10^3/uL (150.0-450.0) 06/21/23 05:38 Plt Count Comment Adequate (ADEQUATE) 06/21/23 05:38 MPV 9.8 fL (7.4-11.0) 06/21/23 05:38 Neut % (Auto) 91.9 % (42.0-75.0) H 06/21/23 05:38 Lymph % (Auto) 6.3 % (21.0-51.0) L 06/21/23 05:38 Angelina % (Auto) 1.5 % (0.0-13.0) 06/21/23 05:38 Eos % (Auto) 0.0 % (0.9-2.9) L 06/21/23 05:38 Baso % (Auto) 0.3 % (0.2-1.0) 06/21/23 05:38 Neut # (Auto) 6.9 x10^3/uL (2.2-4.8) H 06/21/23 05:38 Lymph # (Auto) 0.5 X10^3/uL (1.3-2.9) L 06/21/23 05:38 Angelina # (Auto) 0.1 x10^3/uL (0.3-0.8) L 06/21/23 05:38 Eos # (Auto) 0.0 x10^3/uL (0.0-0.2) 06/21/23 05:38 Baso # (Auto) 0.0 X10^3/uL (0.0-0.1) 06/21/23 05:38 Absolute Nucleated RBC 0.1 /100WBC 06/21/23 05:38 Total Counted 100 06/21/23 05:38 Neutrophils % (Manual) 89 % (39-76) H 06/21/23 05:38 Band Neutrophils % 6 % (0-10) 06/21/23 05:38 Lymphocytes % (Manual) 3 % (13-43) L 06/21/23 05:38 Monocytes % (Manual) 2 % (4-9) L 06/21/23 05:38 Plt Morphology Comment Normal (NORMAL) 06/21/23 05:38 RBC Morphology Normal (NORMAL) 06/21/23 05:38 Sample Site Rrad 06/20/23 17:45 ABG pH 7.330 (7.35-7.45) L 06/20/23 17:45 ABG pCO2 52.0 mmHg (35.0-45.0) H* 06/20/23 17:45 ABG pO2 67.0 mmHg (80.0-100.0) L 06/20/23 17:45 ABG HCO3 27.4 mmol/L (22-26) H 06/20/23 17:45 ABG O2 Saturation 92.0 % (90-100) 06/20/23 17:45 ABG Base Excess 0.7 mmol/L (-2.0-2.0) 06/20/23 17:45 Osman Test Pos 06/20/23 17:45 A-a Gradient 125.0 mmHg 06/20/23 17:45 FiO2 36.0 06/20/23 17:45 Blood Gas Comments Josefa well ms 06/20/23 17:45 Sodium 132 mmol/L (136-145) L 06/21/23 05:38 Corrected Sodium 133 mmol/L (136-145) L 06/21/23 05:38 Potassium 5.5 mmol/L (3.5-5.1) H 06/21/23 05:38 Chloride 100 mmol/L (98-107) 06/21/23 05:38 Carbon Dioxide 28.7 mmol/L (21-32) 06/21/23 05:38 BUN 43 mg/dL (7-18) H 06/21/23 05:38 Creatinine 1.18 mg/dL (0.70-1.30) 06/21/23 05:38 Est GFR (MDRD) Af Amer > 60 (>60) 06/21/23 05:38 Est GFR (MDRD) Non-Af > 60 (>60) 06/21/23 05:38 Glucose 153 mg/dL (65-99) H 06/21/23 05:38 Calcium 8.5 mg/dL (8.5-10.1) 06/21/23 05:38 Corrected Calcium 10.3 mg/dL (8.5-10.1) H 06/21/23 05:38 Magnesium 2.1 mg/dL (2.0-2.9) 06/20/23 04:20 Total Bilirubin 0.30 mg/dL (0.2-1.0) 06/21/23 05:38 AST 58 Units/L (15-37) H 06/21/23 05:38 ALT 87 Units/L (12-78) H 06/21/23 05:38 Alkaline Phosphatase 453 Units/L (46-116) H 06/21/23 05:38 Creatine Kinase 16 Units/L (39-308) L 06/20/23 04:20 Troponin I High Sens 9.2 ng/L (4.0-60.0) 06/20/23 04:20 B-Natriuretic Peptide 158 pg/mL (0-79) H 06/20/23 04:20 Total Protein 6.5 g/dL (6.4-8.2) 06/21/23 05:38 Albumin 1.7 g/dL (3.4-5.0) L 06/21/23 05:38 Globulin 4.8 g/dL (2.5-4.5) H 06/21/23 05:38 Albumin/Globulin Ratio 0.4 Ratio (1.1-2.1) L 06/21/23 05:38 Specimen Type Clean catch urine 06/19/23 10:59 Urine Color Yellow (YELLOW) 06/19/23 10:59 Urine Appearance Clear (CLEAR) 06/19/23 10:59 Urine pH 6.0 (5.0 - 8.0) 06/19/23 10:59 Ur Specific [place] 1.015 (1.000-1.030) 06/19/23 10:59 Urine Protein 1+ (NEGATIVE) 06/19/23 10:59 Urine Glucose (UA) Negative (NEGATIVE) 06/19/23 10:59 Urine Ketones Negative (NEGATIVE) 06/19/23 10:59 Urine Blood Negative (NEGATIVE) 06/19/23 10:59 Urine Nitrite Negative (NEGATIVE) 06/19/23 10:59 Urine Bilirubin Negative (NEGATIVE) 06/19/23 10:59 Urine Urobilinogen Normal (NORMAL) 06/19/23 10:59 Ur Leukocyte Esterase Negative (NEGATIVE) 06/19/23 10:59 Urine RBC 0-2 /HPF (0-3) 06/19/23 10:59 Urine WBC 0-2 /HPF (0-5) 06/19/23 10:59 Ur Squamous Epith Cells Rare /HPF (NEGATIVE) 06/19/23 10:59 Urine Bacteria Trace /HPF (NEGATIVE) 06/19/23 10:59 Ur Culture Indicated? No/not indicated 06/19/23 10:59 - Plan (1) Weakness Status: Acute Plan: GENTLE IV HYDRATION. STRICT I&OS. CXR, RESP CONSULT, CARDIAC MONITORING. IV ATBX, BP CONTROL. CONTINUED HOME MEDICATION, SUPPLEMENTAL O2. RESP THERAPY, PHYSICAL THERAPY CONSULT (2) Lung nodule, multiple Status: Acute (3) Left lower lobe pneumonia Status: Acute (4) Renal mass, left Status: Acute (5) Hypertension Status: Acute
[2023-06-21] MEDS ORDERED: ZESTRIL TAB 20 MG ONE (20:32)
[2023-06-21] MEDS: ZESTRIL TAB 20 MG PO SCH (20:45)
[2023-06-21] MEDS: TRAVATAN Z OP SCH (20:48)
[2023-06-21 23:47] VITALS: BP 130/63; PULSE 79; TEMP 97.8; O2SAT 96
== END 2023-06-22 00:15 | disposition short-term general hospital (02) ==
LOC: ER 10:13 → MED/SURG 10:13
PROVIDERS: ADMIT Internal Medicine; ATTEND Internal Medicine
DX: E83.42 Hypomagnesemia; J18.1 Lobar pneumonia, unspecified organism; N28.89 Other specified disorders of kidney and ureter; M19.90 Unspecified osteoarthritis, unspecified site; R91.8 Other nonspecific abnormal finding of lung field; R74.01 Elevation of levels of liver transaminase levels; R26.89 Other abnormalities of gait and mobility; J90 Pleural effusion, not elsewhere classified; R53.1 Weakness; R41.82 Altered mental status, unspecified; I10 Essential (primary) hypertension; R06.02 Shortness of breath; E87.1 Hypo-osmolality and hyponatremia; R07.81 Pleurodynia; R74.8 Abnormal levels of other serum enzymes

== ENCOUNTER 2024-06-18 15:31 | Inpatient (IN) ==
[2024-06-18] MEDS ORDERED: CHRONULAC PO PRN (17:42)
[2024-06-18] MEDS ORDERED: ALPRAZOLAM ODT ONE (17:57)
[2024-06-18] MEDS: ALPRAZOLAM ODT PO PRN (17:58)
[2024-06-18 19:16] VITALS: BMI 20.7
[2024-06-18] MEDS: DEPAKOTE D.R. TAB PO SCH (21:06)
[2024-06-18] MEDS: TRAVATAN Z EACHEYE SCH (21:11)
[2024-06-18] MEDS: XOPENEX 1.25 MG/3 ML NEBULE NEB SCH (21:59)
[2024-06-18] MEDS ORDERED: STERILE WATER IRRIGATION IR ONE (23:07)
[2024-06-19] MEDS: K-DUR TAB 20 MEQ PO SCH (09:37)
[2024-06-19] MEDS: PLAVIX PO SCH (09:37)
[2024-06-19] MEDS: LASIX PO SCH (09:37)
[2024-06-19] MEDS: IMDUR PO SCH (09:37)
[2024-06-19] MEDS: FLOMAX PO SCH ×2 (09:38→20:20)
[2024-06-19] MEDS: PREDNISONE TAB 5 MG PO SCH (09:38)
[2024-06-19] MEDS: MORPHINE SULFATE INJ 2 MG INJ IVP ONE (12:33)
--- NOTE | 2024-06-19 16:52 | DR.UPDATE ---
H&P UPDATE (1) Wound of right upper extremity: History and Physical Update: SWING BED THERAPY FOR WOUND CARE AND PT CONTINUE PRN RESP THERAPY, PRN SUPPLEMENTAL O2 BP CONTROL (2) Renal mass, left: (3) Lung nodule, multiple: (4) Weakness: (5) Hypertension: (6) COPD (chronic obstructive pulmonary disease): Review No Any changes to H&P?: No
--- NOTE | 2024-06-19 16:55 | PT/OTEVAL ---
PT/OT OBJECTIVES - HISTORY Prescription: PT Consult Diagnosis: Seizure Like Activity, Fall, RFA Laceration Precautions: Fall Risk PMH: HTN, BPH, Dyslipidemia, Pneumonia, Metastatic Lung Cancer, Thoracic Spine Surgery, L Nephrectomy Prior Level of Function: Independent Other: Per patient report (and present in room): Pt resides at home with in single story home wtih 4 steps to enter with LHR. Pt was independent within home and community without a device. Pt does not drive. Pt has a rollator at home and walk in shower with grab bars. Hx of chronic back pain. History of Present Illness: Pt is an 89 year old male who was admitted to [facility] on 06/13/2024 with right focal seizure activity (including tremors) with fall and right forearm laceration. Pt was treated and medically stabilized and discharged to [facility] for swing bed program on evening of 06/18/2024. - COGNITION Mental Status: Alert, Oriented, Name, Date, Place Communication Status: Verbal Ability to Follow Directions: 2 Step Affect: Calm - PAIN Back Pain Scale: Mild Comments: "It always hurt" Right Arm Pain Scale: Mild Comments: "It's getting better every day but has a burning feeling" - BED MOBILITY Rolling: Moderate - TRANSFERS Supine to Sit: Moderate Sit to Stand: Moderate Sit or Stand Pivot: Moderate, x2 Safety (requires cues for:): Hand Placement Precaution - BALANCE Static Sitting: Good Standing: Poor Dynamic Sitting: Fair Standing: Poor - NEUROMOTOR/SENSATION Ashvin. Lower Ext Sensation: WFL Coordination: WFL Proprioception: WFL - ROM Bilateral LE Muscle Tone: WFL - STRENGTH Bilateral LE Strength Number: 3 Other comment: 01/16 - GAIT Pt. ambulates how many feet?: 5 Amount of Assistance Required: Moderate Type of Assistive Device: Rolling Walker Comments: 2 person assist for safety. Easily fatigues. - TREATMENT Date: 06/19/24 Time: 11:45 Treatment Type: Evaluation Treatment Provided: Therapeutic Activities - TOTAL TREATMENT TIME Total Time: 30 - POST ASSESSMENT Post Assessment Comment: Pt was found supine in bed in room with present and agreeable to participation in PT services. Pt and able to provide history & PLOF information. Pt reports pain to RUE and low back (which is chronic in nature). Pt required mod assist for bed mobility tasks and once at EOB, pt able to maintain sitting balance. Pt mod assist for sit to stand transfers and cues for proper hand placement. Pt mod assist x 2 for stand pivot and short distance gait tasks to recliner chair. Pt took seated therapeutic rest break in recliner chair. Pt then again stood from recliner chair with mod assist- once in standing and with BUE support on FWW and min assist for balance pt able to perform 5 marches on RLE at which time, pt reports feeling fatigued and requesting to return to bed. Pt assisted back to bed with mod assist x 2 for transfer and mod assist for sitting to supine position. Pt was left in bed with call rivera in reach, present and all needs met. Pt would benefit from continued participation in PT Services to address remaining deficits and facil itate highest level of function and safe discharge planning. - EXIT DISPOSITION Exit Position: BED Call light in reach: Yes Comments: present in room. PT/OT ASSESSMENT - PT Problem List: Decreased Bed Mobility, Decreased Transfers, Decreased Gait, Decreased Balance, Decreased LE Strength - PT GOALS Short Term Goals Days: 10 Mobility: Pt will perform bed mobility tasks with min assist Transfers: Pt will perform functional transfers with min assist Gait: Pt will ambulate 50ft with FWW with min assist Balance: Pt will increase static standing balance to good Assisted Goals Days: 20 Mobility: Pt will perform bed mobility tasks with mod I Transfers: Pt will perform functional transfers with mod I Gait: Pt will ambulate 150ft with FWW with mod I Balance: Pt will increase dynamic standing balance to fair+/good- ROM/Strength: Pt will increase BLE strength to 5/5 Others: Pt will ascend/descend 4 stairs with RHR with supervision - PATIENT GOALS Patient/Family Goals: "I want to work to get better and be more independent" Goals Discussed with Patient/Family: Yes Rehabilitation Potential: Good to meet stated goals Justification for Potential: Facilitate highest level of function and safe discharge planning. Weakness and Barriers: None - PLAN Suggested Treatment Plan: Bed Mobility Training, Therapeutic Activity, Gait Training, Neuro Re-education, Therapeutic Ex with HEP, Patient Education - FREQUENCY AND DURATION PT: 5-6x per week x 20 days Expected Continuation of Care at Discharge: Home Health Anticipated Equipment Needs: TBD pending progress with therapy
--- NOTE | 2024-06-19 17:34 | PT/OTEVAL ---
PT/OT OBJECTIVES - HISTORY Prescription: OT Consult Diagnosis: Seizure Like Activity, Fall, RFA Laceration Precautions: Fall Risk PMH: HTN, BPH, Dyslipidemia, Pneumonia, Metastatic Lung Cancer, Thoracic Spine Surgery, L Nephrectomy Prior Level of Function: Independent Other: Per patient report (and present in room): Pt resides at home with in single story home wtih 4 steps to enter with LHR. Pt was independent within home and community without a device. Pt does not drive. Pt has a rollator at home and walk in shower with grab bars. Hx of chronic back pain. History of Present Illness: Pt is an 89 year old male who was admitted to [facility] on 06/13/2024 with right focal seizure activity (including tremors) with fall and right forearm laceration. Pt was treated and medically stabilized and discharged to [facility] for swing bed program on evening of 06/18/2024. - COGNITION Mental Status: Alert, Oriented, Name, Date, Place Communication Status: Verbal Ability to Follow Directions: 2 Step Affect: Calm - PAIN Back Pain Scale: Mild Comments: "It always hurt" Right Arm Pain Scale: Mild Comments: "It's getting better every day but has a burning feeling" - BED MOBILITY Rolling: Moderate - TRANSFERS Supine to Sit: Moderate Sit to Stand: Moderate Sit or Stand Pivot: Moderate, x2 Safety (requires cues for:): Hand Placement Precaution - ADL'S Feeding: Supervision Grooming: Minimum Upper Body ADL: Moderate Upper Body ADL Comment: Due to pain in RUE Lower Body ADL: Moderate Toileting: Moderate Bathing: Maximum Hygeine: Minimum - BALANCE Static Sitting: Good Standing: Poor Dynamic Sitting: Fair Standing: Poor - NEUROMOTOR/SENSATION Ashvin. Lower Ext Sensation: WFL Coordination: WFL Proprioception: WFL Right Upper Ext Sensation: Impaired Coordination: WFL Left Upper Ext Sensation: WFL Coordination: WFL - HAND DOMINANCE Extremity Function: Hand Dominance: Right - ROM Bilateral UE ROM: WFL - STRENGTH Bilateral LE Strength Number: 3 Other comment: 01/16 Bilateral UE Strength Number: 3 Other comment: 01/16 - GAIT Pt. ambulates how many feet?: 5 Amount of assistance required: Moderate Type of Assistive Device: Rolling Walker Comments: x2 A for safety, fatigues easily. - TREATMENT Date: 06/19/24 Time: 11:45 Treatment Type: Evaluation Treatment Provided: Therapeutic Activities - TOTAL TREATMENT TIME Total Time: 30 - POST ASSESSMENT Post Assessment Comment: Pt was seen for skilled OT to assess CLOF. Pt was agreeable to be seen by skilled OT and was able to provide PLOF and hx. CG was present during evaluation. Pt log rolling in bed with mod A, Changing brief and cleaning him was max A. Pt supine to sit with mod A. Pt STS with mod A. Pt functionally transferred with mod A x2 and RW. Pt completed 2 STS with mod A and RW. During stand pt used urinal with max A. Pt then transferred back to bed with mod A x2. Repositioned in bed with mod A. Pt fatigues easily. Pt educated on PLB and EC. Pt would benefit from skilled OT to address ADL deficits to facilitate highest level of ADL function needed for safe d/c planning. - EXIT DISPOSITION Exit Position: BED Call light in reach: Yes PT/OT ASSESSMENT - OT Problem List: Decreased Mobility ADL's, Decreased Safety Aware, Decreased Dressing, Decreased Bathing, Decreased Grooming, Decreased UE Strength - PT GOALS Short Term Goals Days: 10 Mobility: Pt will perform bed mobility tasks with min assist Transfers: Pt will perform functional transfers with min assist Gait: Pt will ambulate 50ft with FWW with min assist Balance: Pt will increase static standing balance to good Pipeline Integrity Engineer Goals Days: 20 Mobility: Pt will perform bed mobility tasks with mod I Transfers: Pt will perform functional transfers with mod I Gait: Pt will ambulate 150ft with FWW with mod I Balance: Pt will increase dynamic standing balance to fair+/good- ROM/Strength: Pt will increase BLE strength to 5/5 Others: Pt will ascend/descend 4 stairs with RHR with supervision - OT GOALS Care Home Goals Days: 20 Mobility for ADL's: Pt will perform toilet transfers with mod (I) Safety Awareness: Pt to improve safety awareness to G Dressing: Pt to improve LB dressing to set up A Bathing: Pt to improve Overall bathing to set up A Grooming: Pt to improve grooming to (I) Upper Ext. Strength/Use: Pt to improve MMT in BUE by 1 grade Short Term Goals Days: 10 Mobility for ADL's: Pt to transfer to BSC with supv A and LRAD Safety Awareness: Pt to improve safety awareness to F+ Dressing: Pt to improve UB dressing to set up A Bathing: Pt to improve bathing to supv A Grooming: Pt to improve oral care to (I) Other: Pt to improve FAT to F+ - PATIENT GOALS Patient/Family Goals: I want to get well enough to go home Goals Discussed with Patient/Family: Yes Rehabilitation Potential: Good to meet stated goals Justification for Potential: To facilitate highest level of ADL function needed for safe d/c planning Weakness and Barriers: Pain - PLAN Suggested Treatment Plan: Therapeutic Activity, Self Care Training, Neuro Re- education, Therapeutic Ex with HEP, Patient Education - FREQUENCY AND DURATION OT: 5x a week x 20 days Expected Continuation of Care at Discharge: Home Health Anticipated Equipment Needs: TBD pending progress
[2024-06-20] MEDS: NORCO 5/325 MG TAB PO PRN (06:17)
[2024-06-20 06:57] LABS: BASOPHILS % (AUTO) 0.6 % (0.2-1.0); EOSINOPHILS # (AUTO) 0.1 x10^3/uL (0.0-0.2); EOSINOPHILS % (AUTO) 1.1 % (0.9-2.9); HEMATOCRIT 31.5 % (42.0-54.0); HEMOGLOBIN 10.3 g/dL (13.5-18.0); LYMPHOCYTES # (AUTO) 1.2 X10^3/uL (1.3-2.9); LYMPHOCYTES % (AUTO) 21.8 % (21.0-51.0); MEAN CORPUSCULAR HEMOGLOBIN 31.1 pg (27.0-34.0); MEAN CORPUSCULAR HGB CONC 32.8 g/dL (33.0-35.0); MEAN CORPUSCULAR VOLUME 94.7 fL (80.0-100.0); MEAN PLATELET VOLUME 10.2 fL (7.4-11.0); MONOCYTES # (AUTO) 0.5 x10^3/uL (0.3-0.8); MONOCYTES % (AUTO) 8.7 % (0.0-13.0); NEUTROPHILS # (AUTO) 3.6 x10^3/uL (2.2-4.8); NEUTROPHILS % (AUTO) 67.8 % (42.0-75.0); PLATELET COUNT 135 X10^3/uL (150.0-450.0); RED BLOOD COUNT 3.33 X10^6/uL (4.7-6.0); WHITE BLOOD COUNT 5.3 X10^3/uL (3.6-10.0)
[2024-06-20 07:20] LABS: ALANINE AMINOTRANSFERASE 37 Units/L (12-78); ALBUMIN 1.9 g/dL (3.4-5.0); ALKALINE PHOSPHATASE 619 Units/L (46-116); ASPARTATE AMINO TRANSFERASE 83 Units/L (15-37); BLOOD UREA NITROGEN 34 mg/dL (7-18); CALCIUM 8.2 mg/dL (8.5-10.1); CARBON DIOXIDE 23.1 mmol/L (21-32); CHLORIDE 104 mmol/L (98-107); COR CA(FOR HYPOALB) 9.9 mg/dL (8.5-10.1); CREATININE 1.51 mg/dL (0.70-1.30); GLUCOSE 69 mg/dL (65-99); SODIUM 136 mmol/L (136-145); eGFR NON BLACK RACES 47 (>60)
[2024-06-20 07:24] LABS: POTASSIUM 6.2 mmol/L (3.5-5.1)
[2024-06-20] MEDS: LOVENOX INJ 30 MG SYR SC SCH (10:23)
[2024-06-20] MEDS: PATIENT'S HOME MEDICATION PO SCH (10:23)
[2024-06-20] MEDS: BUTT CREAM (COMPOUND) TOP PRN (15:45)
--- NOTE | 2024-06-20 17:32 | PCM.PROG ---
Progress Note Progress Note for Day of Date of Exam: 06/20/24 Subjective Subjective: Patient is an 89 yr old white male that is a swing bed admission from [facility]. He was initially seen at [facility] ER after having seizure like activity that caused him to fall out of bed and injure his right arm with a large open wound dressed per Dr. Davis yesterday. Pt was recently diagnosed with lesions on his lungs as well as his liver per family. Patient has not followed up with oncology and pt states he does not want treatment for metastatic lung cancer. Patient is noted to be hyperkalemic with potassium being 6.2. We have ordered Lokelma x 1 dose. Pt will have repeat potassium this afternoon and in the am. Holding po potassium and lasix, pt states he did not take it at home daily. Past Medical Family Social History Allergies: Allergies No Known Allergies Allergy (Verified 06/20/24 09:04) Vital Signs and I&O's Vital Signs: Vital Signs Temperature 97.7 F Pulse Rate [Radial] 109 Pulse Rate 67 Respiratory Rate 19 Respiratory Rate 18 Respiratory Rate 20 Respiratory Rate 18 Blood Pressure [Right Arm] 96/58 O2 Sat by Pulse Oximetry 93 Intake and Output: Intake & Output 06/18/24 06/19/24 06/20/24 06/21/24 11:59 11:59 11:59 11:59 Intake Total 260 / 260 650 / 650 Output Total 310 / 310 822 / 822 Balance -50 / -50 -172 / -172 Physical Exam Oriented: Normal Eyes: Normal Nose: Normal Throat: Normal Respiratory: Diminished Cardiovascular: Normal : Normal Auscultation: Bowel Sounds: Increased Tenderness: Normal Skin: Decreased Turgur, Wound and Bruising Musculoskeletal: Motor Deficit Mood Description: Calm Affect: Anxious Speech Pattern: Clear and Appropriate Laboratory and Diagnostics 06/20/24 06:10 06/20/24 16:03 Labs: Laboratory WBC 5.3 X10^3/uL (3.6-10.0) 06/20/24 06:10 RBC 3.33 X10^6/uL (4.7-6.0) L 06/20/24 06:10 Hgb 10.3 g/dL (13.5-18.0) L 06/20/24 06:10 Hct 31.5 % (42.0-54.0) L 06/20/24 06:10 MCV 94.7 fL (80.0-100.0) 06/20/24 06:10 MCH 31.1 pg (27.0-34.0) 06/20/24 06:10 MCHC 32.8 g/dL (33.0-35.0) L 06/20/24 06:10 RDW 16.0 % (11.6-16.5) 06/20/24 06:10 Plt Count 135 X10^3/uL (150.0-450.0) L 06/20/24 06:10 MPV 10.2 fL (7.4-11.0) 06/20/24 06:10 Neut % (Auto) 67.8 % (42.0-75.0) 06/20/24 06:10 Lymph % (Auto) 21.8 % (21.0-51.0) 06/20/24 06:10 Heard % (Auto) 8.7 % (0.0-13.0) 06/20/24 06:10 Eos % (Auto) 1.1 % (0.9-2.9) 06/20/24 06:10 Baso % (Auto) 0.6 % (0.2-1.0) 06/20/24 06:10 Neut # (Auto) 3.6 x10^3/uL (2.2-4.8) 06/20/24 06:10 Lymph # (Auto) 1.2 X10^3/uL (1.3-2.9) L 06/20/24 06:10 Heard # (Auto) 0.5 x10^3/uL (0.3-0.8) 06/20/24 06:10 Eos # (Auto) 0.1 x10^3/uL (0.0-0.2) 06/20/24 06:10 Baso # (Auto) 0.0 X10^3/uL (0.0-0.1) 06/20/24 06:10 Absolute Nucleated RBC 0.1 /100WBC 06/20/24 06:10 Sodium 136 mmol/L (136-145) 06/20/24 06:10 Corrected Sodium TNP 06/20/24 06:10 Potassium 6.2 mmol/L (3.5-5.1) H* 06/20/24 06:10 Chloride 104 mmol/L (98-107) 06/20/24 06:10 Carbon Dioxide 23.1 mmol/L (21-32) 06/20/24 06:10 BUN 34 mg/dL (7-18) H 06/20/24 06:10 Creatinine 1.51 mg/dL (0.70-1.30) H 06/20/24 06:10 Est GFR (MDRD) Af Amer 56 (>60) L 06/20/24 06:10 Est GFR (MDRD) Non-Af 47 (>60) L 06/20/24 06:10 Glucose 69 mg/dL (65-99) 06/20/24 06:10 Calcium 8.2 mg/dL (8.5-10.1) L 06/20/24 06:10 Corrected Calcium 9.9 mg/dL (8.5-10.1) 06/20/24 06:10 Total Bilirubin 0.60 mg/dL (0.2-1.0) 06/20/24 06:10 AST 83 Units/L (15-37) H 06/20/24 06:10 ALT 37 Units/L (12-78) 06/20/24 06:10 Alkaline Phosphatase 619 Units/L (46-116) H 06/20/24 06:10 Total Protein 6.0 g/dL (6.4-8.2) L 06/20/24 06:10 Albumin 1.9 g/dL (3.4-5.0) L 06/20/24 06:10 Globulin 4.1 g/dL (2.5-4.5) 06/20/24 06:10 Albumin/Globulin Ratio 0.5 Ratio (1.1-2.1) L 06/20/24 06:10 Plan (1) Wound of right upper extremity: Status: Acute Narrative Support Text: SWING BED THERAPY FOR WOUND CARE AND PT CONTINUE PRN RESP THERAPY, PRN SUPPLEMENTAL O2 BP CONTROL (2) Renal mass, left: Status: Acute (3) Lung nodule, multiple: Status: Acute (4) Weakness: Status: Acute (5) Hypertension: Status: Acute (6) COPD (chronic obstructive pulmonary disease): Status: Acute
--- NOTE | 2024-06-20 23:37 | RAD ---
EXAM:THORACIC SPINEHISTORY:s/p fall,back pain ;COMPARISON:None availableTECHNIQUE:Radiographs of the thoracic spine, 2 views, AP and lateral projectionsFINDINGS:Status post posterior spinal fusion, disc arthroplasty and vertebroplasty in the midthoracic spine.Bilateral pulmonary nodules visualized.Widening of the mediastinum which has occurred since the previous exam on June 21, 2023.Question of mild vertebral body height loss at L1.IMPRESSION:1. Question of mild vertebral body height loss at L1. Consider a CT exam of the lumbar spine for further characterization.2. Widening of the mediastinum could represent lymphadenopathy. Recommend CT imaging for further characterization.3. Bilateral pulmonary nodules; as seen on previous exams.THIS IS AN ELECTRONICALLY VERIFIED FINAL REPORT06/20/2024 11:33 PM - Electronically signed by Waldemar Blum MD
--- NOTE | 2024-06-21 05:36 | RAD ---
EXAM:LUMBAR SPINE, AP/LATHISTORY:s/p fall,back pain ;COMPARISON:Thoracic spine same dayFINDINGS:Mild thoracolumbar dextrocurvature. Grade 2 anterolisthesis of L5 on S1.Moderate multilevel spinal degenerative changes.No acute fracture in the visualized spine.No acute soft tissue abnormality. Extensive vascular calcificationsIMPRESSION:No acute fracture.THIS IS AN ELECTRONICALLY VERIFIED FINAL REPORT06/21/2024 5:32 AM - Electronically signed by Porfirio White MD
[2024-06-22 06:40] LABS: EOSINOPHILS # (AUTO) 0.1 x10^3/uL (0.0-0.2); EOSINOPHILS % (AUTO) 1.2 % (0.9-2.9); HEMATOCRIT 33.1 % (42.0-54.0); HEMOGLOBIN 10.9 g/dL (13.5-18.0); LYMPHOCYTES # (AUTO) 0.8 X10^3/uL (1.3-2.9); LYMPHOCYTES % (AUTO) 19.2 % (21.0-51.0); MEAN CORPUSCULAR HEMOGLOBIN 31.2 pg (27.0-34.0); MEAN CORPUSCULAR HGB CONC 32.8 g/dL (33.0-35.0); MEAN CORPUSCULAR VOLUME 95.3 fL (80.0-100.0); MEAN PLATELET VOLUME 9.9 fL (7.4-11.0); MONOCYTES # (AUTO) 0.5 x10^3/uL (0.3-0.8); NEUTROPHILS % (AUTO) 67.6 % (42.0-75.0); PLATELET COUNT 143 X10^3/uL (150.0-450.0); RED BLOOD COUNT 3.48 X10^6/uL (4.7-6.0); WHITE BLOOD COUNT 4.4 X10^3/uL (3.6-10.0)
[2024-06-22 06:56] LABS: ALANINE AMINOTRANSFERASE 54 Units/L (12-78); ALBUMIN 1.9 g/dL (3.4-5.0); ALKALINE PHOSPHATASE 732 Units/L (46-116); ASPARTATE AMINO TRANSFERASE 114 Units/L (15-37); BLOOD UREA NITROGEN 36 mg/dL (7-18); CALCIUM 8.6 mg/dL (8.5-10.1); CARBON DIOXIDE 26.7 mmol/L (21-32); CHLORIDE 103 mmol/L (98-107); COR CA(FOR HYPOALB) 10.3 mg/dL (8.5-10.1); CREATININE 1.59 mg/dL (0.70-1.30); GLUCOSE 76 mg/dL (65-99); POTASSIUM 5.4 mmol/L (3.5-5.1); SODIUM 137 mmol/L (136-145); TOTAL PROTEIN 6.4 g/dL (6.4-8.2); eGFR NON BLACK RACES 44 (>60)
[2024-06-22] MEDS: SALINE 0.9% 3 ML NEB TX ONE (08:25)
[2024-06-23] MEDS: STERILE WATER IRRIGATION IR ONE (10:09)
[2024-06-23] MEDS: MILK OF MAGNESIA PO PRN (21:06)
[2024-06-23] MEDS: FLOMAX PO SCH (21:06)
[2024-06-23] MEDS: COLACE CAP 100 MG PO PRN (21:06)
--- NOTE | 2024-06-23 23:28 | PCM.PROG ---
Progress Note Progress Note for Day of Date of Exam: 06/23/24 Subjective Subjective: Swing bed admission The patient is an 89-year-old white male who is a swing bed admission from [facility]. He was initially seen at [facility] ER after having a seizure-like activity that caused him to fall out of bed and injure his right arm with a large open wound dressed per Dr. Davis yesterday. He was recently diagnosed with lesions on his lungs as well as his liver per family. The patient has not followed up with oncology, and he states he does not want treatment for metastatic lung cancer. Tuesday, 23 June 2024 I see that the patient's previous hypokalemia is now resolved. He states that his right arm is getting better. He complained to me this morning about having nocturia about 3 times per night. He states he is tired of going to the bathroom so often because it interferes with his sleep. I see that he takes 0.4 mg of tamsulosin daily. I told him that we would change it to twice a day and let him take 1 at bedtime to see if this would decrease the number of times he urinated at night. No other changes at this time. Past Medical Family Social History Allergies: Allergies No Known Allergies Allergy (Verified 06/20/24 09:04) Review of Systems ROS: Changes notes (describe) (Nocturia-approximately 3 times per night.) Vital Signs and I&O's Vital Signs: Vital Signs Temperature 97.7 F Pulse Rate [Radial] 90 Respiratory Rate 18 Respiratory Rate 18 Respiratory Rate 20 Respiratory Rate 18 Blood Pressure [Left Arm] 97/53 O2 Sat by Pulse Oximetry 94 Intake and Output: Intake & Output 06/21/24 06/22/24 06/23/24 06/24/24 11:59 11:59 11:59 11:59 Intake Total 740 / 740 120 / 120 725 / 725 480 / 480 Output Total 485 / 485 220 / 220 Balance 255 / 255 120 / 120 505 / 505 480 / 480 Physical Exam Oriented: Normal Eyes: Normal Nose: Normal Throat: Normal Respiratory: Diminished Cardiovascular: Normal : Normal Auscultation: Bowel Sounds: Increased Tenderness: Normal Skin: Decreased Turgur, Wound and Bruising Musculoskeletal: Motor Deficit Mood Description: Calm Affect: Anxious Speech Pattern: Clear and Appropriate Laboratory and Diagnostics 06/22/24 05:54 06/23/24 05:43 Labs: 06/21/24 18:02 Arm - Wound Wound Gram Stain - Final 06/21/24 18:02 Arm - Wound Wound Culture - Preliminary Laboratory WBC 4.4 X10^3/uL (3.6-10.0) 06/22/24 05:54 RBC 3.48 X10^6/uL (4.7-6.0) L 06/22/24 05:54 Hgb 10.9 g/dL (13.5-18.0) L 06/22/24 05:54 Hct 33.1 % (42.0-54.0) L 06/22/24 05:54 MCV 95.3 fL (80.0-100.0) 06/22/24 05:54 MCH 31.2 pg (27.0-34.0) 06/22/24 05:54 MCHC 32.8 g/dL (33.0-35.0) L 06/22/24 05:54 RDW 16.0 % (11.6-16.5) 06/22/24 05:54 Plt Count 143 X10^3/uL (150.0-450.0) L 06/22/24 05:54 MPV 9.9 fL (7.4-11.0) 06/22/24 05:54 Neut % (Auto) 67.6 % (42.0-75.0) 06/22/24 05:54 Lymph % (Auto) 19.2 % (21.0-51.0) L 06/22/24 05:54 [place] % (Auto) 11.0 % (0.0-13.0) 06/22/24 05:54 Eos % (Auto) 1.2 % (0.9-2.9) 06/22/24 05:54 Baso % (Auto) 1.0 % (0.2-1.0) 06/22/24 05:54 Neut # (Auto) 3.0 x10^3/uL (2.2-4.8) 06/22/24 05:54 Lymph # (Auto) 0.8 X10^3/uL (1.3-2.9) L 06/22/24 05:54 [place] # (Auto) 0.5 x10^3/uL (0.3-0.8) 06/22/24 05:54 Eos # (Auto) 0.1 x10^3/uL (0.0-0.2) 06/22/24 05:54 Baso # (Auto) 0.0 X10^3/uL (0.0-0.1) 06/22/24 05:54 Absolute Nucleated RBC 0.1 /100WBC 06/22/24 05:54 Sodium 137 mmol/L (136-145) 06/22/24 05:54 Corrected Sodium TNP 06/22/24 05:54 Potassium 5.1 mmol/L (3.5-5.1) 06/23/24 05:43 Chloride 103 mmol/L (98-107) 06/22/24 05:54 Carbon Dioxide 26.7 mmol/L (21-32) 06/22/24 05:54 BUN 36 mg/dL (7-18) H 06/22/24 05:54 Creatinine 1.59 mg/dL (0.70-1.30) H 06/22/24 05:54 Est GFR (MDRD) Af Amer 53 (>60) L 06/22/24 05:54 Est GFR (MDRD) Non-Af 44 (>60) L 06/22/24 05:54 Glucose 76 mg/dL (65-99) 06/22/24 05:54 POC Glucose (mg/dL) 100 mg/dL (65-99) H 06/23/24 11:58 Calcium 8.6 mg/dL (8.5-10.1) 06/22/24 05:54 Corrected Calcium 10.3 mg/dL (8.5-10.1) H 06/22/24 05:54 Total Bilirubin 0.50 mg/dL (0.2-1.0) 06/22/24 05:54 AST 114 Units/L (15-37) H 06/22/24 05:54 ALT 54 Units/L (12-78) 06/22/24 05:54 Alkaline Phosphatase 732 Units/L (46-116) H 06/22/24 05:54 Total Protein 6.4 g/dL (6.4-8.2) 06/22/24 05:54 Albumin 1.9 g/dL (3.4-5.0) L 06/22/24 05:54 Globulin 4.5 g/dL (2.5-4.5) 06/22/24 05:54 Albumin/Globulin Ratio 0.4 Ratio (1.1-2.1) L 06/22/24 05:54 Plan (1) Wound of right upper extremity: Status: Acute Narrative Support Text: The patient just had a bandage change this morning. He states it is getting better overall. Plan: Continue current treatment. (2) Renal mass, left: Status: Acute (3) Lung nodule, multiple: Status: Acute (4) Weakness: Status: Acute (5) Hypertension: Status: Acute (6) COPD (chronic obstructive pulmonary disease): Status: Acute (7) Nocturia more than twice per night: Status: Acute Plan: Change the patient's tamsulosin 0.4 mg from daily to twice daily.
[2024-06-24] MEDS: TYLENOL 325 MG TAB PO PRN (06:50)
[2024-06-25 05:40] LABS: BASOPHILS # (AUTO) 0.1 X10^3/uL (0.0-0.1); HEMATOCRIT 34.1 % (42.0-54.0); HEMOGLOBIN 11.2 g/dL (13.5-18.0); LYMPHOCYTES # (AUTO) 0.9 X10^3/uL (1.3-2.9); LYMPHOCYTES % (AUTO) 19.1 % (21.0-51.0); MEAN CORPUSCULAR HEMOGLOBIN 31.8 pg (27.0-34.0); MEAN CORPUSCULAR HGB CONC 32.7 g/dL (33.0-35.0); MEAN CORPUSCULAR VOLUME 97.1 fL (80.0-100.0); MEAN PLATELET VOLUME 9.8 fL (7.4-11.0); MONOCYTES # (AUTO) 0.5 x10^3/uL (0.3-0.8); MONOCYTES % (AUTO) 9.2 % (0.0-13.0); NEUTROPHILS # (AUTO) 3.4 x10^3/uL (2.2-4.8); NEUTROPHILS % (AUTO) 69.7 % (42.0-75.0); PLATELET COUNT 151 X10^3/uL (150.0-450.0); RED BLOOD COUNT 3.52 X10^6/uL (4.7-6.0); RED CELL DISTRIBUTION WIDTH 16.6 % (11.6-16.5); WHITE BLOOD COUNT 4.9 X10^3/uL (3.6-10.0)
[2024-06-25 06:21] LABS: ALANINE AMINOTRANSFERASE 66 Units/L (12-78); ALKALINE PHOSPHATASE 809 Units/L (46-116); ASPARTATE AMINO TRANSFERASE 156 Units/L (15-37); BLOOD UREA NITROGEN 42 mg/dL (7-18); CALCIUM 8.4 mg/dL (8.5-10.1); CARBON DIOXIDE 23.6 mmol/L (21-32); CHLORIDE 105 mmol/L (98-107); CREATININE 1.57 mg/dL (0.70-1.30); GLUCOSE 74 mg/dL (65-99); POTASSIUM 5.4 mmol/L (3.5-5.1); SODIUM 138 mmol/L (136-145); TOTAL PROTEIN 6.6 g/dL (6.4-8.2); eGFR NON BLACK RACES 45 (>60)
[2024-06-25] MEDS: BACTRIM DS TAB PO SCH (09:45)
--- NOTE | 2024-06-25 16:38 | PCM.PROG ---
Progress Note Progress Note for Day of Date of Exam: 06/22/24 Subjective Subjective: Swing bed admission The patient is an 89-year-old white male who is a swing bed admission from [facility]. He was initially seen at [facility] ER after having a seizure-like activity that caused him to fall out of bed and injure his right arm with a large open wound dressed per Dr. Davis. He was recently diagnosed with lesions on his lungs as well as his liver per family. The patient has not followed up with oncology, and he states he does not want aggressive treatment for metastatic lung cancer. Pain currently controlled with PRN tylenol and [place] Past Medical Family Social History Allergies: Allergies No Known Allergies Allergy (Verified 06/20/24 09:04) Review of Systems ROS: Changes notes (describe) (Nocturia-approximately 3 times per night.) Vital Signs and I&O's Vital Signs: Vital Signs Respiratory Rate 22 Respiratory Rate 22 O2 Sat by Pulse Oximetry 96 Intake and Output: Intake & Output 06/23/24 06/24/24 06/25/24 06/26/24 11:59 11:59 11:59 11:59 Intake Total 725 / 725 505 / 505 665 / 665 520 / 520 Output Total 220 / 220 150 / 150 125 / 125 Balance 505 / 505 355 / 355 540 / 540 520 / 520 Physical Exam Oriented: Normal Eyes: Normal Nose: Normal Throat: Normal Respiratory: Diminished Cardiovascular: Normal : Normal Auscultation: Bowel Sounds: Increased Tenderness: Normal Skin: Decreased Turgur, Wound and Bruising Musculoskeletal: Motor Deficit Mood Description: Calm Affect: Anxious Speech Pattern: Clear and Appropriate Laboratory and Diagnostics 06/25/24 04:40 06/25/24 04:40 Labs: 06/21/24 18:02 Arm - Wound Wound Gram Stain - Final 06/21/24 18:02 Arm - Wound 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[facility] WBC 4.9 X10^3/uL (3.6-10.0) 06/25/24 04:40 RBC 3.52 X10^6/uL (4.7-6.0) L 06/25/24 04:40 Hgb 11.2 g/dL (13.5-18.0) L 06/25/24 04:40 Hct 34.1 % (42.0-54.0) L 06/25/24 04:40 MCV 97.1 fL (80.0-100.0) 06/25/24 04:40 MCH 31.8 pg (27.0-34.0) 06/25/24 04:40 MCHC 32.7 g/dL (33.0-35.0) L 06/25/24 04:40 RDW 16.6 % (11.6-16.5) H 06/25/24 04:40 Plt Count 151 X10^3/uL (150.0-450.0) 06/25/24 04:40 MPV 9.8 fL (7.4-11.0) 06/25/24 04:40 Neut % (Auto) 69.7 % (42.0-75.0) 06/25/24 04:40 Lymph % (Auto) 19.1 % (21.0-51.0) L 06/25/24 04:40 [place] % (Auto) 9.2 % (0.0-13.0) 06/25/24 04:40 Eos % (Auto) 1.0 % (0.9-2.9) 06/25/24 04:40 Baso % (Auto) 1.0 % (0.2-1.0) 06/25/24 04:40 Neut # (Auto) 3.4 x10^3/uL (2.2-4.8) 06/25/24 04:40 Lymph # (Auto) 0.9 X10^3/uL (1.3-2.9) L 06/25/24 04:40 [place] # (Auto) 0.5 x10^3/uL (0.3-0.8) 06/25/24 04:40 Eos # (Auto) 0.0 x10^3/uL (0.0-0.2) 06/25/24 04:40 Baso # (Auto) 0.1 X10^3/uL (0.0-0.1) 06/25/24 04:40 Absolute Nucleated RBC 0.2 /100WBC 06/25/24 04:40 Sodium 138 mmol/L (136-145) 06/25/24 04:40 Corrected Sodium TNP 06/25/24 04:40 Potassium 5.4 mmol/L (3.5-5.1) H 06/25/24 04:40 Chloride 105 mmol/L (98-107) 06/25/24 04:40 Carbon Dioxide 23.6 mmol/L (21-32) 06/25/24 04:40 BUN 42 mg/dL (7-18) H 06/25/24 04:40 Creatinine 1.57 mg/dL (0.70-1.30) H 06/25/24 04:40 Est GFR (MDRD) Af Amer 54 (>60) L 06/25/24 04:40 Est GFR (MDRD) Non-Af 45 (>60) L 06/25/24 04:40 Glucose 74 mg/dL (65-99) 06/25/24 04:40 POC Glucose (mg/dL) 100 mg/dL (65-99) H 06/23/24 11:58 Calcium 8.4 mg/dL (8.5-10.1) L 06/25/24 04:40 Corrected Calcium 10.0 mg/dL (8.5-10.1) 06/25/24 04:40 Total Bilirubin 0.50 mg/dL (0.2-1.0) 06/25/24 04:40 AST 156 Units/L (15-37) H 06/25/24 04:40 ALT 66 Units/L (12-78) 06/25/24 04:40 Alkaline Phosphatase 809 Units/L (46-116) H 06/25/24 04:40 Total Protein 6.6 g/dL (6.4-8.2) 06/25/24 04:40 Albumin 2.0 g/dL (3.4-5.0) L 06/25/24 04:40 Globulin 4.6 g/dL (2.5-4.5) H 06/25/24 04:40 Albumin/Globulin Ratio 0.4 Ratio (1.1-2.1) L 06/25/24 04:40 Plan (1) Wound of right upper extremity: Status: Acute Plan: Continue current treatment. (2) Renal mass, left: Status: Acute (3) Lung nodule, multiple: Status: Acute (4) Weakness: Status: Acute (5) Hypertension: Status: Acute (6) COPD (chronic obstructive pulmonary disease): Status: Acute (7) Nocturia more than twice per night: Status: Acute Plan: Change the patient's tamsulosin 0.4 mg from daily to twice daily.
--- NOTE | 2024-06-25 16:41 | PCM.PROG ---
Progress Note Progress Note for Day of Date of Exam: 06/25/24 Subjective Subjective: Swing bed admission The patient is an 89-year-old white male who is a swing bed admission from [facility]. He was initially seen at [facility] ER after having a seizure-like activity that caused him to fall out of bed and injure his right arm with a large open wound dressed per Dr. Davis. He was recently diagnosed with lesions on his lungs as well as his liver per family. The patient has not followed up with oncology, and he states he does not want aggressive treatment for metastatic lung cancer. Pain currently controlled with PRN tylenol and [place]. Pt's wound culture results gram negative rods/ gram neg staph and pt was started on po bactrim with instructions to increase po water intake. Past Medical Family Social History Allergies: Allergies No Known Allergies Allergy (Verified 06/20/24 09:04) Review of Systems ROS: Changes notes (describe) (Nocturia-approximately 3 times per night.) Vital Signs and I&O's Vital Signs: Vital Signs Respiratory Rate 22 Respiratory Rate 22 Respiratory Rate 22 O2 Sat by Pulse Oximetry 96 Intake and Output: Intake & Output 06/23/24 06/24/24 06/25/24 06/26/24 11:59 11:59 11:59 11:59 Intake Total 725 / 725 505 / 505 665 / 665 520 / 520 Output Total 220 / 220 150 / 150 125 / 125 Balance 505 / 505 355 / 355 540 / 540 520 / 520 Physical Exam Oriented: Normal Eyes: Normal Nose: Normal Throat: Normal Respiratory: Diminished Cardiovascular: Normal : Normal Auscultation: Bowel Sounds: Increased Tenderness: Normal Skin: Decreased Turgur, Wound and Bruising Musculoskeletal: Motor Deficit Mood Description: Calm Affect: Anxious Speech Pattern: Clear and Appropriate Laboratory and Diagnostics 06/25/24 04:40 06/25/24 04:40 Labs: 06/21/24 18:02 Arm - Wound Wound Gram Stain - Final 06/21/24 18:02 Arm - Wound 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0 % (0.9-2.9) 06/25/24 04:40 Baso % (Auto) 1.0 % (0.2-1.0) 06/25/24 04:40 Neut # (Auto) 3.4 x10^3/uL (2.2-4.8) 06/25/24 04:40 Lymph # (Auto) 0.9 X10^3/uL (1.3-2.9) L 06/25/24 04:40 [place] # (Auto) 0.5 x10^3/uL (0.3-0.8) 06/25/24 04:40 Eos # (Auto) 0.0 x10^3/uL (0.0-0.2) 06/25/24 04:40 Baso # (Auto) 0.1 X10^3/uL (0.0-0.1) 06/25/24 04:40 Absolute Nucleated RBC 0.2 /100WBC 06/25/24 04:40 Sodium 138 mmol/L (136-145) 06/25/24 04:40 Corrected Sodium TNP 06/25/24 04:40 Potassium 5.4 mmol/L (3.5-5.1) H 06/25/24 04:40 Chloride 105 mmol/L (98-107) 06/25/24 04:40 Carbon Dioxide 23.6 mmol/L (21-32) 06/25/24 04:40 BUN 42 mg/dL (7-18) H 06/25/24 04:40 Creatinine 1.57 mg/dL (0.70-1.30) H 06/25/24 04:40 Est GFR (MDRD) Af Amer 54 (>60) L 06/25/24 04:40 Est GFR (MDRD) Non-Af 45 (>60) L 06/25/24 04:40 Glucose 74 mg/dL (65-99) 06/25/24 04:40 POC Glucose (mg/dL) 100 mg/dL (65-99) H 06/23/24 11:58 Calcium 8.4 mg/dL (8.5-10.1) L 06/25/24 04:40 Corrected Calcium 10.0 mg/dL (8.5-10.1) 06/25/24 04:40 Total Bilirubin 0.50 mg/dL (0.2-1.0) 06/25/24 04:40 AST 156 Units/L (15-37) H 06/25/24 04:40 ALT 66 Units/L (12-78) 06/25/24 04:40 Alkaline Phosphatase 809 Units/L (46-116) H 06/25/24 04:40 Total Protein 6.6 g/dL (6.4-8.2) 06/25/24 04:40 Albumin 2.0 g/dL (3.4-5.0) L 06/25/24 04:40 Globulin 4.6 g/dL (2.5-4.5) H 06/25/24 04:40 Albumin/Globulin Ratio 0.4 Ratio (1.1-2.1) L 06/25/24 04:40 Plan (1) Wound of right upper extremity: Status: Acute Plan: Continue current treatment. (2) Renal mass, left: Status: Acute (3) Lung nodule, multiple: Status: Acute (4) Weakness: Status: Acute (5) Hypertension: Status: Acute (6) COPD (chronic obstructive pulmonary disease): Status: Acute (7) Nocturia more than twice per night: Status: Acute Plan: Change the patient's tamsulosin 0.4 mg from daily to twice daily.
[2024-06-25] MEDS: NYSTATIN POWDER TOP SCH (21:01)
[2024-06-27 06:23] LABS: BASOPHILS % (AUTO) 0.7 % (0.2-1.0); EOSINOPHILS % (AUTO) 0.6 % (0.9-2.9); HEMATOCRIT 31.8 % (42.0-54.0); HEMOGLOBIN 10.6 g/dL (13.5-18.0); LYMPHOCYTES # (AUTO) 1.1 X10^3/uL (1.3-2.9); LYMPHOCYTES % (AUTO) 19.7 % (21.0-51.0); MEAN CORPUSCULAR HEMOGLOBIN 31.9 pg (27.0-34.0); MEAN CORPUSCULAR HGB CONC 33.2 g/dL (33.0-35.0); MEAN CORPUSCULAR VOLUME 96.1 fL (80.0-100.0); MEAN PLATELET VOLUME 9.9 fL (7.4-11.0); MONOCYTES # (AUTO) 0.5 x10^3/uL (0.3-0.8); NEUTROPHILS # (AUTO) 4.1 x10^3/uL (2.2-4.8); PLATELET COUNT 170 X10^3/uL (150.0-450.0); RED BLOOD COUNT 3.31 X10^6/uL (4.7-6.0); RED CELL DISTRIBUTION WIDTH 16.3 % (11.6-16.5); WHITE BLOOD COUNT 5.8 X10^3/uL (3.6-10.0)
[2024-06-27 06:27] LABS: ALANINE AMINOTRANSFERASE 49 Units/L (12-78); ALKALINE PHOSPHATASE 749 Units/L (46-116); ASPARTATE AMINO TRANSFERASE 101 Units/L (15-37); BLOOD UREA NITROGEN 41 mg/dL (7-18); CARBON DIOXIDE 22.8 mmol/L (21-32); CHLORIDE 105 mmol/L (98-107); COR CA(FOR HYPOALB) 9.6 mg/dL (8.5-10.1); CREATININE 1.89 mg/dL (0.70-1.30); GLUCOSE 81 mg/dL (65-99); POTASSIUM 5.6 mmol/L (3.5-5.1); SODIUM 136 mmol/L (136-145); TOTAL PROTEIN 6.5 g/dL (6.4-8.2); eGFR NON BLACK RACES 36 (>60)
[2024-06-27] MEDS ORDERED: LOKELMA POWDER PO NR (08:45)
[2024-06-27] MEDS: BACTRIM DS TAB PO SCH (10:38)
[2024-06-27] MEDS: KAYEXALATE SUSP PO ONE (10:43)
--- NOTE | 2024-06-27 17:27 | CT ---
EXAM: THORACIC SPINE W/O CON; LUMBAR SPINE W/O CON HISTORY: back pain; COMPARISON: Prior study or studies were utilized for comparison during interpretation with the most relevant migdalia ed 06/20/2024 TECHNIQUE: Non-contrast axial CT images of the thoracic and lumbar spine with sagittal and coronal reformats. All CT exams at this facility utilize dose modulation, iterative reconstruction, and/or weight based dosing as appropriate to reduce radiation levels to as low as reasonably achievable (ALARA). Radiation dose is recorded in the patient's medical record. FINDINGS: T6, T7, and T8 fusion with vertebroplasty changes. Vertebral body heights are otherwise maintained throughout the thoracolumbar spine. Grade 1 anterolisthesis L5 on S1 secondary to bilateral pars interarticularis defects Intervertebral disc spaces maintained. Multilevel osteophytes are seen throughout the lumbar spine. No significant central canal stenosis. Bony neural foraminal narrowing seen bilaterally at L5-S1. Foramina appear otherwise widely patent. No fracture identified. Small left and [id number] right pleural effusions with dependent atelectasis versus infiltrate s. 2.2 cm nodule is seen in the left lower lobe on axial image 73 Imaged portion of the intra-abdominal structures are unremarkable. Soft tissues are unremarkable. IMPRESSION: 1. No acute osseous abnormality. No evidence of acute traumatic injury to the thoracic or lumbar spi ne 2. Chronic grade 1 anterolisthesis L5 on S1 secondary to bilateral pars interarticularis defects resu lts in [id number] bilateral neural foraminal narrowing 3. Bilateral pleural effusions with pneumonia versus atelectasis 4. 2.2 cm left lower lobe solid lung nodule is noted. Correlate with clinical history. CT chest wit h contrast could be considered for further characterization if indicated to rule out neoplasm THIS IS AN ELECTRONICALLY VERIFIED FINAL REPORT 06/27/2024 5:23 PM - Electronically signed by Anibal Ribera MD
--- NOTE | 2024-06-27 17:27 | CT ---
EXAM: THORACIC SPINE W/O CON; LUMBAR SPINE W/O CON HISTORY: back pain; COMPARISON: Prior study or studies were utilized for comparison during interpretation with the most relevant migdalia ed 06/20/2024 TECHNIQUE: Non-contrast axial CT images of the thoracic and lumbar spine with sagittal and coronal reformats. All CT exams at this facility utilize dose modulation, iterative reconstruction, and/or weight based dosing as appropriate to reduce radiation levels to as low as reasonably achievable (ALARA). Radiation dose is recorded in the patient's medical record. FINDINGS: T6, T7, and T8 fusion with vertebroplasty changes. Vertebral body heights are otherwise maintained throughout the thoracolumbar spine. Grade 1 anterolisthesis L5 on S1 secondary to bilateral pars interarticularis defects Intervertebral disc spaces maintained. Multilevel osteophytes are seen throughout the lumbar spine. No significant central canal stenosis. Bony neural foraminal narrowing seen bilaterally at L5-S1. Foramina appear otherwise widely patent. No fracture identified. Small left and [id number]-japbqdrp right pleural effusions with dependent atelectasis versus infiltrate s. 2.2 cm nodule is seen in the left lower lobe on axial image 73 Imaged portion of the intra-abdominal structures are unremarkable. Soft tissues are unremarkable. IMPRESSION: 1. No acute osseous abnormality. No evidence of acute traumatic injury to the thoracic or lumbar spi ne 2. Chronic grade 1 anterolisthesis L5 on S1 secondary to bilateral pars interarticularis defects resu lts in [id number]-va-[id number] bilateral neural foraminal narrowing 3. Bilateral pleural effusions with pneumonia versus atelectasis 4. 2.2 cm left lower lobe solid lung nodule is noted. Correlate with clinical history. CT chest wit h contrast could be considered for further characterization if indicated to rule out neoplasm THIS IS AN ELECTRONICALLY VERIFIED FINAL REPORT 06/27/2024 5:23 PM - Electronically signed by Anibal Ribera MD
--- NOTE | 2024-06-27 17:32 | PCM.PROG ---
Progress Note Progress Note for Day of Date of Exam: 06/22/24 Subjective Subjective: Swing bed admission The patient is an 89-year-old white male who is a swing bed admission from [facility]. He was initially seen at [facility] ER after having a seizure-like activity that caused him to fall out of bed and injure his right arm with a large open wound dressed per Dr. Davis. He was recently diagnosed with lesions on his lungs as well as his liver per family. The patient has not followed up with oncology, and he states he does not want aggressive treatment for metastatic lung cancer. Pain currently controlled with PRN tylenol and [place]. Past Medical Family Social History Allergies: Allergies No Known Allergies Allergy (Verified 06/20/24 09:04) Review of Systems ROS: Changes notes (describe) (Nocturia-approximately 3 times per night.) Vital Signs and I&O's Vital Signs: Vital Signs Temperature 97.8 F Pulse Rate [Radial] 106 Respiratory Rate 18 Respiratory Rate 20 Respiratory Rate 20 Respiratory Rate 18 Blood Pressure [Left Calf] 105/70 O2 Sat by Pulse Oximetry 98 O2 Sat by Pulse Oximetry 98 Intake and Output: Intake & Output 06/24/24 06/25/24 06/26/24 06/27/24 11:59 11:59 11:59 11:59 Intake Total 505 / 505 665 / 665 670 / 670 Output Total 150 / 150 125 / 125 Balance 355 / 355 540 / 540 670 / 670 Physical Exam Oriented: Normal Eyes: Normal Nose: Normal Throat: Normal Respiratory: Diminished Cardiovascular: Normal : Normal Auscultation: Bowel Sounds: Increased Tenderness: Normal Skin: Decreased Turgur, Wound and Bruising Musculoskeletal: Motor Deficit Mood Description: Calm Affect: Anxious Speech Pattern: Clear and Appropriate Laboratory and Diagnostics 06/27/24 05:38 06/27/24 05:38 Labs: 06/21/24 18:02 Arm - Wound Wound Gram Stain - Final 06/21/24 18:02 Arm - Wound 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[facility] WBC 4.9 X10^3/uL (3.6-10.0) 06/25/24 04:40 RBC 3.52 X10^6/uL (4.7-6.0) L 06/25/24 04:40 Hgb 11.2 g/dL (13.5-18.0) L 06/25/24 04:40 Hct 34.1 % (42.0-54.0) L 06/25/24 04:40 MCV 97.1 fL (80.0-100.0) 06/25/24 04:40 MCH 31.8 pg (27.0-34.0) 06/25/24 04:40 MCHC 32.7 g/dL (33.0-35.0) L 06/25/24 04:40 RDW 16.6 % (11.6-16.5) H 06/25/24 04:40 Plt Count 151 X10^3/uL (150.0-450.0) 06/25/24 04:40 MPV 9.8 fL (7.4-11.0) 06/25/24 04:40 Neut % (Auto) 69.7 % (42.0-75.0) 06/25/24 04:40 Lymph % (Auto) 19.1 % (21.0-51.0) L 06/25/24 04:40 [place] % (Auto) 9.2 % (0.0-13.0) 06/25/24 04:40 Eos % (Auto) 1.0 % (0.9-2.9) 06/25/24 04:40 Baso % (Auto) 1.0 % (0.2-1.0) 06/25/24 04:40 Neut # (Auto) 3.4 x10^3/uL (2.2-4.8) 06/25/24 04:40 Lymph # (Auto) 0.9 X10^3/uL (1.3-2.9) L 06/25/24 04:40 [place] # (Auto) 0.5 x10^3/uL (0.3-0.8) 06/25/24 04:40 Eos # (Auto) 0.0 x10^3/uL (0.0-0.2) 06/25/24 04:40 Baso # (Auto) 0.1 X10^3/uL (0.0-0.1) 06/25/24 04:40 Absolute Nucleated RBC 0.2 /100WBC 06/25/24 04:40 Sodium 138 mmol/L (136-145) 06/25/24 04:40 Corrected Sodium TNP 06/25/24 04:40 Potassium 5.4 mmol/L (3.5-5.1) H 06/25/24 04:40 Chloride 105 mmol/L (98-107) 06/25/24 04:40 Carbon Dioxide 23.6 mmol/L (21-32) 06/25/24 04:40 BUN 42 mg/dL (7-18) H 06/25/24 04:40 Creatinine 1.57 mg/dL (0.70-1.30) H 06/25/24 04:40 Est GFR (MDRD) Af Amer 54 (>60) L 06/25/24 04:40 Est GFR (MDRD) Non-Af 45 (>60) L 06/25/24 04:40 Glucose 74 mg/dL (65-99) 06/25/24 04:40 POC Glucose (mg/dL) 100 mg/dL (65-99) H 06/23/24 11:58 Calcium 8.4 mg/dL (8.5-10.1) L 06/25/24 04:40 Corrected Calcium 10.0 mg/dL (8.5-10.1) 06/25/24 04:40 Total Bilirubin 0.50 mg/dL (0.2-1.0) 06/25/24 04:40 AST 156 Units/L (15-37) H 06/25/24 04:40 ALT 66 Units/L (12-78) 06/25/24 04:40 Alkaline Phosphatase 809 Units/L (46-116) H 06/25/24 04:40 Total Protein 6.6 g/dL (6.4-8.2) 06/25/24 04:40 Albumin 2.0 g/dL (3.4-5.0) L 06/25/24 04:40 Globulin 4.6 g/dL (2.5-4.5) H 06/25/24 04:40 Albumin/Globulin Ratio 0.4 Ratio (1.1-2.1) L 06/25/24 04:40 Plan (1) Wound of right upper extremity: Status: Acute Plan: Continue current treatment. (2) Renal mass, left: Status: Acute (3) Lung nodule, multiple: Status: Acute (4) Weakness: Status: Acute (5) Hypertension: Status: Acute (6) COPD (chronic obstructive pulmonary disease): Status: Acute (7) Nocturia more than twice per night: Status: Acute Plan: Change the patient's tamsulosin 0.4 mg from daily to twice daily.
--- NOTE | 2024-06-28 17:23 | PCM.PROG ---
Progress Note Progress Note for Day of Date of Exam: 06/25/24 Subjective Subjective: Swing bed admission The patient is an 89-year-old white male who is a swing bed admission from [facility]. He was initially seen at [facility] ER after having a seizure-like activity that caused him to fall out of bed and injure his right arm with a large open wound dressed per Dr. Davis. He was recently diagnosed with lesions on his lungs as well as his liver per family. The patient has not followed up with oncology, and he states he does not want aggressive treatment for metastatic lung cancer. Pain currently controlled with PRN tylenol and [place]. Pt had hyperkalemia last week which has improved. Pt continues to co lower back pain worse with ambulation. Past Medical Family Social History Allergies: Allergies No Known Allergies Allergy (Verified 06/20/24 09:04) Review of Systems ROS: Changes notes (describe) (Nocturia-approximately 3 times per night.) Vital Signs and I&O's Vital Signs: Vital Signs Respiratory Rate 18 Respiratory Rate 20 Respiratory Rate 20 Intake and Output: Intake & Output 06/26/24 06/27/24 06/28/24 06/29/24 11:59 11:59 11:59 11:59 Intake Total 670 / 670 330 / 330 735 / 735 700 / 700 Output Total 320 / 320 Balance 670 / 670 330 / 330 415 / 415 700 / 700 Physical Exam Oriented: Normal Eyes: Normal Nose: Normal Throat: Normal Respiratory: Diminished Cardiovascular: Normal : Normal Auscultation: Bowel Sounds: Increased Tenderness: Normal Skin: Decreased Turgur, Wound and Bruising Musculoskeletal: Motor Deficit Mood Description: Calm Affect: Anxious Speech Pattern: Clear and Appropriate Laboratory and Diagnostics 06/27/24 05:38 06/27/24 05:38 Labs: 06/21/24 18:02 Arm - Wound Wound Gram Stain - Final 06/21/24 18:02 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9-2.9) L 06/27/24 05:38 Baso % (Auto) 0.7 % (0.2-1.0) 06/27/24 05:38 Neut # (Auto) 4.1 x10^3/uL (2.2-4.8) 06/27/24 05:38 Lymph # (Auto) 1.1 X10^3/uL (1.3-2.9) L 06/27/24 05:38 [place] # (Auto) 0.5 x10^3/uL (0.3-0.8) 06/27/24 05:38 Eos # (Auto) 0.0 x10^3/uL (0.0-0.2) 06/27/24 05:38 Baso # (Auto) 0.0 X10^3/uL (0.0-0.1) 06/27/24 05:38 Absolute Nucleated RBC 0.2 /100WBC 06/27/24 05:38 Sodium 136 mmol/L (136-145) 06/27/24 05:38 Corrected Sodium TNP 06/27/24 05:38 Potassium 5.6 mmol/L (3.5-5.1) H 06/27/24 05:38 Chloride 105 mmol/L (98-107) 06/27/24 05:38 Carbon Dioxide 22.8 mmol/L (21-32) 06/27/24 05:38 BUN 41 mg/dL (7-18) H 06/27/24 05:38 Creatinine 1.89 mg/dL (0.70-1.30) H 06/27/24 05:38 Est GFR (MDRD) Af Amer 44 (>60) L 06/27/24 05:38 Est GFR (MDRD) Non-Af 36 (>60) L 06/27/24 05:38 Glucose 81 mg/dL (65-99) 06/27/24 05:38 POC Glucose (mg/dL) 100 mg/dL (65-99) H 06/23/24 11:58 Calcium 8.0 mg/dL (8.5-10.1) L 06/27/24 05:38 Corrected Calcium 9.6 mg/dL (8.5-10.1) 06/27/24 05:38 Total Bilirubin 0.50 mg/dL (0.2-1.0) 06/27/24 05:38 AST 101 Units/L (15-37) H 06/27/24 05:38 ALT 49 Units/L (12-78) 06/27/24 05:38 Alkaline Phosphatase 749 Units/L (46-116) H 06/27/24 05:38 Total Protein 6.5 g/dL (6.4-8.2) 06/27/24 05:38 Albumin 2.0 g/dL (3.4-5.0) L 06/27/24 05:38 Globulin 4.5 g/dL (2.5-4.5) 06/27/24 05:38 Albumin/Globulin Ratio 0.4 Ratio (1.1-2.1) L 06/27/24 05:38 Plan (1) Wound of right upper extremity: Status: Acute Plan: Continue current treatment. (2) Renal mass, left: Status: Acute (3) Lung nodule, multiple: Status: Acute (4) Weakness: Status: Acute (5) Hypertension: Status: Acute (6) COPD (chronic obstructive pulmonary disease): Status: Acute (7) Nocturia more than twice per night: Status: Acute Plan: Change the patient's tamsulosin 0.4 mg from daily to twice daily.
--- NOTE | 2024-06-28 17:25 | PCM.PROG ---
Progress Note Progress Note for Day of Date of Exam: 06/27/24 Subjective Subjective: Swing bed admission The patient is an 89-year-old white male who is a swing bed admission from [facility]. He was initially seen at [facility] ER after having a seizure-like activity that caused him to fall out of bed and injure his right arm with a large open wound dressed per Dr. Davis. He was recently diagnosed with lesions on his lungs as well as his liver per family. The patient has not followed up with oncology, and he states he does not want aggressive treatment for metastatic lung cancer. Pain currently controlled with PRN tylenol and [place]. Pt had hyperkalemia last week which has improved but at 5.6 this am. Pt also co no BM for 2 days. Plan to give kayexalate po for hyperkalemia and discussed with family it should help with bowels. Pt continues to co lower back pain worse with ambulation, xrays ordered for evaluation for any acute changes. Past Medical Family Social History Allergies: Allergies No Known Allergies Allergy (Verified 06/20/24 09:04) Review of Systems ROS: Changes notes (describe) (Nocturia-approximately 3 times per night.) Vital Signs and I&O's Vital Signs: Vital Signs Respiratory Rate 18 Respiratory Rate 20 Respiratory Rate 20 Intake and Output: Intake & Output 06/26/24 06/27/24 06/28/24 06/29/24 11:59 11:59 11:59 11:59 Intake Total 670 / 670 330 / 330 735 / 735 700 / 700 Output Total 320 / 320 Balance 670 / 670 330 / 330 415 / 415 700 / 700 Physical Exam Oriented: Normal Eyes: Normal Nose: Normal Throat: Normal Respiratory: Diminished Cardiovascular: Normal : Normal Auscultation: Bowel Sounds: Increased Tenderness: Normal Skin: Decreased [place], Wound and Bruising Musculoskeletal: Motor Deficit Mood Description: Calm Affect: Anxious Speech Pattern: Clear and Appropriate Laboratory and Diagnostics 06/27/24 05:38 06/27/24 05:38 Labs: 06/21/24 18:02 Arm - Wound Wound Gram Stain - Final 06/21/24 18:02 Arm - Wound 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Laboratory WBC 5.8 X10^3/uL (3.6-10.0) 06/27/24 05:38 RBC 3.31 X10^6/uL (4.7-6.0) L 06/27/24 05:38 Hgb 10.6 g/dL (13.5-18.0) L 06/27/24 05:38 Hct 31.8 % (42.0-54.0) L 06/27/24 05:38 MCV 96.1 fL (80.0-100.0) 06/27/24 05:38 MCH 31.9 pg (27.0-34.0) 06/27/24 05:38 MCHC 33.2 g/dL (33.0-35.0) 06/27/24 05:38 RDW 16.3 % (11.6-16.5) 06/27/24 05:38 Plt Count 170 X10^3/uL (150.0-450.0) 06/27/24 05:38 MPV 9.9 fL (7.4-11.0) 06/27/24 05:38 Neut % (Auto) 70.0 % (42.0-75.0) 06/27/24 05:38 Lymph % (Auto) 19.7 % (21.0-51.0) L 06/27/24 05:38 [place] % (Auto) 9.0 % (0.0-13.0) 06/27/24 05:38 Eos % (Auto) 0.6 % (0.9-2.9) L 06/27/24 05:38 Baso % (Auto) 0.7 % (0.2-1.0) 06/27/24 05:38 Neut # (Auto) 4.1 x10^3/uL (2.2-4.8) 06/27/24 05:38 Lymph # (Auto) 1.1 X10^3/uL (1.3-2.9) L 06/27/24 05:38 [place] # (Auto) 0.5 x10^3/uL (0.3-0.8) 06/27/24 05:38 Eos # (Auto) 0.0 x10^3/uL (0.0-0.2) 06/27/24 05:38 Baso # (Auto) 0.0 X10^3/uL (0.0-0.1) 06/27/24 05:38 Absolute Nucleated RBC 0.2 /100WBC 06/27/24 05:38 Sodium 136 mmol/L (136-145) 06/27/24 05:38 Corrected Sodium TNP 06/27/24 05:38 Potassium 5.6 mmol/L (3.5-5.1) H 06/27/24 05:38 Chloride 105 mmol/L (98-107) 06/27/24 05:38 Carbon Dioxide 22.8 mmol/L (21-32) 06/27/24 05:38 BUN 41 mg/dL (7-18) H 06/27/24 05:38 Creatinine 1.89 mg/dL (0.70-1.30) H 06/27/24 05:38 Est GFR (MDRD) Af Amer 44 (>60) L 06/27/24 05:38 Est GFR (MDRD) Non-Af 36 (>60) L 06/27/24 05:38 Glucose 81 mg/dL (65-99) 06/27/24 05:38 POC Glucose (mg/dL) 100 mg/dL (65-99) H 06/23/24 11:58 Calcium 8.0 mg/dL (8.5-10.1) L 06/27/24 05:38 Corrected Calcium 9.6 mg/dL (8.5-10.1) 06/27/24 05:38 Total Bilirubin 0.50 mg/dL (0.2-1.0) 06/27/24 05:38 AST 101 Units/L (15-37) H 06/27/24 05:38 ALT 49 Units/L (12-78) 06/27/24 05:38 Alkaline Phosphatase 749 Units/L (46-116) H 06/27/24 05:38 Total Protein 6.5 g/dL (6.4-8.2) 06/27/24 05:38 Albumin 2.0 g/dL (3.4-5.0) L 06/27/24 05:38 Globulin 4.5 g/dL (2.5-4.5) 06/27/24 05:38 Albumin/Globulin Ratio 0.4 Ratio (1.1-2.1) L 06/27/24 05:38 Plan (1) Wound of right upper extremity: Status: Acute Plan: Continue current treatment. (2) Renal mass, left: Status: Acute (3) Lung nodule, multiple: Status: Acute (4) Weakness: Status: Acute (5) Hypertension: Status: Acute (6) COPD (chronic obstructive pulmonary disease): Status: Acute (7) Nocturia more than twice per night: Status: Acute Plan: Change the patient's tamsulosin 0.4 mg from daily to twice daily.
[2024-06-28] MEDS ORDERED: STERILE WATER IRRIGATION IR ONE (21:22)
[2024-06-29 05:22] LABS: BASOPHILS % (AUTO) 0.8 % (0.2-1.0); EOSINOPHILS % (AUTO) 1.1 % (0.9-2.9); HEMATOCRIT 31.7 % (42.0-54.0); HEMOGLOBIN 10.5 g/dL (13.5-18.0); LYMPHOCYTES % (AUTO) 23.1 % (21.0-51.0); MEAN CORPUSCULAR HEMOGLOBIN 31.7 pg (27.0-34.0); MEAN PLATELET VOLUME 9.7 fL (7.4-11.0); MONOCYTES # (AUTO) 0.5 x10^3/uL (0.3-0.8); MONOCYTES % (AUTO) 11.2 % (0.0-13.0); NEUTROPHILS # (AUTO) 2.8 x10^3/uL (2.2-4.8); NEUTROPHILS % (AUTO) 63.8 % (42.0-75.0); PLATELET COUNT 181 X10^3/uL (150.0-450.0); RED BLOOD COUNT 3.31 X10^6/uL (4.7-6.0); RED CELL DISTRIBUTION WIDTH 16.8 % (11.6-16.5); WHITE BLOOD COUNT 4.3 X10^3/uL (3.6-10.0)
[2024-06-29 05:44] LABS: ALANINE AMINOTRANSFERASE 40 Units/L (12-78); ALBUMIN 1.9 g/dL (3.4-5.0); ALKALINE PHOSPHATASE 723 Units/L (46-116); ASPARTATE AMINO TRANSFERASE 83 Units/L (15-37); BLOOD UREA NITROGEN 45 mg/dL (7-18); CARBON DIOXIDE 21.6 mmol/L (21-32); CHLORIDE 106 mmol/L (98-107); COR CA(FOR HYPOALB) 9.7 mg/dL (8.5-10.1); CREATININE 1.78 mg/dL (0.70-1.30); GLUCOSE 72 mg/dL (65-99); POTASSIUM 4.7 mmol/L (3.5-5.1); SODIUM 138 mmol/L (136-145); TOTAL PROTEIN 6.2 g/dL (6.4-8.2); eGFR NON BLACK RACES 39 (>60)
[2024-07-02 04:52] LABS: WHITE BLOOD COUNT 4.4 X10^3/uL (3.6-10.0)
[2024-07-02 05:00] LABS: BASOPHILS % (AUTO) 0.8 % (0.2-1.0); HEMATOCRIT 32.9 % (42.0-54.0); LYMPHOCYTES # (AUTO) 0.8 X10^3/uL (1.3-2.9); LYMPHOCYTES % (AUTO) 17.7 % (21.0-51.0); MEAN CORPUSCULAR HGB CONC 33.3 g/dL (33.0-35.0); MEAN CORPUSCULAR VOLUME 95.9 fL (80.0-100.0); MEAN PLATELET VOLUME 9.6 fL (7.4-11.0); MONOCYTES # (AUTO) 0.4 x10^3/uL (0.3-0.8); MONOCYTES % (AUTO) 8.4 % (0.0-13.0); NEUTROPHILS # (AUTO) 3.2 x10^3/uL (2.2-4.8); NEUTROPHILS % (AUTO) 72.1 % (42.0-75.0); PLATELET COUNT 180 X10^3/uL (150.0-450.0); RED BLOOD COUNT 3.43 X10^6/uL (4.7-6.0)
[2024-07-02 05:16] LABS: ALANINE AMINOTRANSFERASE 68 Units/L (12-78); ALKALINE PHOSPHATASE 957 Units/L (46-116); ASPARTATE AMINO TRANSFERASE 137 Units/L (15-37); BLOOD UREA NITROGEN 41 mg/dL (7-18); CALCIUM 8.6 mg/dL (8.5-10.1); CARBON DIOXIDE 24.2 mmol/L (21-32); CHLORIDE 104 mmol/L (98-107); COR CA(FOR HYPOALB) 10.2 mg/dL (8.5-10.1); CREATININE 1.76 mg/dL (0.70-1.30); GLUCOSE 74 mg/dL (65-99); SODIUM 136 mmol/L (136-145); TOTAL PROTEIN 6.8 g/dL (6.4-8.2); eGFR NON BLACK RACES 39 (>60)
--- NOTE | 2024-07-02 05:51 | EKG ---
Test Reason : hyperkalemia Blood Pressure : */* mmHG Vent. Rate : 81 BPM Atrial Rate : 81 BPM P-R Int : 158 ms QRS Dur : 94 ms QT Int : 370 ms P-R-T Axes : 46 -24 102 degrees QTc Int : 429 ms Sinus rhythm with marked sinus arrhythmia Abnormal QRS-T angle, consider primary T wave abnormality Abnormal ECG When compared with ECG of 20-JUN-2023 09:01, premature atrial complexes are no longer present Confirmed by Fawad Boles MD ([id number]) on 07/02/2024 6:05:01 AM Referred By: Confirmed By: Fawad Boles MD
[2024-07-02] MEDS: KAYEXALATE SUSP PO ONE (05:56)
[2024-07-02] MEDS ORDERED: KAYEXALATE SUSP PO SCH (09:00)
[2024-07-02] MEDS: LOKELMA POWDER PO SCH (09:34)
[2024-07-04 06:53] LABS: BASOPHILS # (AUTO) 0.1 X10^3/uL (0.0-0.1); BASOPHILS % (AUTO) 2.2 % (0.2-1.0); EOSINOPHILS # (AUTO) 0.1 x10^3/uL (0.0-0.2); EOSINOPHILS % (AUTO) 1.7 % (0.9-2.9); HEMATOCRIT 32.6 % (42.0-54.0); HEMOGLOBIN 10.7 g/dL (13.5-18.0); LYMPHOCYTES # (AUTO) 0.8 X10^3/uL (1.3-2.9); LYMPHOCYTES % (AUTO) 17.5 % (21.0-51.0); MEAN CORPUSCULAR HEMOGLOBIN 31.5 pg (27.0-34.0); MEAN CORPUSCULAR HGB CONC 32.8 g/dL (33.0-35.0); MEAN CORPUSCULAR VOLUME 95.9 fL (80.0-100.0); MEAN PLATELET VOLUME 9.3 fL (7.4-11.0); MONOCYTES # (AUTO) 0.3 x10^3/uL (0.3-0.8); MONOCYTES % (AUTO) 7.4 % (0.0-13.0); NEUTROPHILS # (AUTO) 3.2 x10^3/uL (2.2-4.8); NEUTROPHILS % (AUTO) 71.2 % (42.0-75.0); PLATELET COUNT 148 X10^3/uL (150.0-450.0); WHITE BLOOD COUNT 4.4 X10^3/uL (3.6-10.0)
[2024-07-04 07:07] LABS: ALANINE AMINOTRANSFERASE 82 Units/L (12-78); ALBUMIN 1.9 g/dL (3.4-5.0); ALKALINE PHOSPHATASE 1000 Units/L (46-116); ASPARTATE AMINO TRANSFERASE 146 Units/L (15-37); BLOOD UREA NITROGEN 34 mg/dL (7-18); CALCIUM 8.1 mg/dL (8.5-10.1); CARBON DIOXIDE 22.7 mmol/L (21-32); CHLORIDE 102 mmol/L (98-107); COR CA(FOR HYPOALB) 9.8 mg/dL (8.5-10.1); CREATININE 1.53 mg/dL (0.70-1.30); GLUCOSE 72 mg/dL (65-99); POTASSIUM 5.2 mmol/L (3.5-5.1); SODIUM 134 mmol/L (136-145); TOTAL PROTEIN 6.3 g/dL (6.4-8.2); eGFR NON BLACK RACES 46 (>60)
[2024-07-04 09:39] VITALS: BP 104/68; PULSE 96; RESP 20; TEMP 97.5; O2SAT 98
--- NOTE | 2024-07-09 12:50 | PCM.DCPLAN ---
DISCHARGE SUMMARY Admission Date Date of Admission: 06/18/24 Discharge Date Discharge Date: 07/04/24 Admission Diagnoses (1) Wound of right upper extremity: Status: Acute (2) Renal mass, left: Status: Acute (3) Lung nodule, multiple: Status: Acute (4) Weakness: Status: Acute (5) Hypertension: Status: Chronic (6) COPD (chronic obstructive pulmonary disease): Status: Chronic (7) Nocturia more than twice per night: Status: Acute Discharge Medications Discharge Medications: Home Medication List alprazolam 0.25 mg tablet 0.25 mg PO TID 06/18/24 [History] clopidogrel 75 mg tablet (Plavix) 75 mg PO DAILY 06/18/24 [History] denosumab 60 mg/mL subcutaneous syringe (Prolia) 60 mg subcut [id number] 06/18/24 [History] divalproex 250 mg tablet,delayed release 250 mg PO BID 06/18/24 [History] hydrocodone 5 mg-acetaminophen 325 mg tablet 5 - 325 tab PO QID 06/18/24 [History] tamsulosin 0.4 mg capsule 0.4 mg PO DAILY 06/18/24 [History] sulfamethoxazole 800 mg-trimethoprim 160 mg tablet (Bactrim DS) 0.5 tab PO BID 3 days #3 tabs 07/04/24 [Rx] Prescriptions: sulfamethoxazole-trimethoprim [Bactrim DS] [facility]MAR[facility] Course Latest Lab Results: Laboratory Last Values WBC 4.4 X10^3/uL (3.6-10.0) 07/04/24 06:22 RBC 3.40 X10^6/uL (4.7-6.0) L 07/04/24 06:22 Hgb 10.7 g/dL (13.5-18.0) L 07/04/24 06:22 Hct 32.6 % (42.0-54.0) L 07/04/24 06:22 MCV 95.9 fL (80.0-100.0) 07/04/24 06:22 MCH 31.5 pg (27.0-34.0) 07/04/24 06:22 MCHC 32.8 g/dL (33.0-35.0) L 07/04/24 06:22 RDW 17.0 % (11.6-16.5) H 07/04/24 06:22 Plt Count 148 X10^3/uL (150.0-450.0) L 07/04/24 06:22 MPV 9.3 fL (7.4-11.0) 07/04/24 06:22 Neut % (Auto) 71.2 % (42.0-75.0) 07/04/24 06:22 Lymph % (Auto) 17.5 % (21.0-51.0) L 07/04/24 06:22 [place] % (Auto) 7.4 % (0.0-13.0) 07/04/24 06:22 Eos % (Auto) 1.7 % (0.9-2.9) 07/04/24 06:22 Baso % (Auto) 2.2 % (0.2-1.0) H 07/04/24 06:22 Neut # (Auto) 3.2 x10^3/uL (2.2-4.8) 07/04/24 06:22 Lymph # (Auto) 0.8 X10^3/uL (1.3-2.9) L 07/04/24 06:22 [place] # (Auto) 0.3 x10^3/uL (0.3-0.8) 07/04/24 06:22 Eos # (Auto) 0.1 x10^3/uL (0.0-0.2) 07/04/24 06:22 Baso # (Auto) 0.1 X10^3/uL (0.0-0.1) 07/04/24 06:22 Absolute Nucleated RBC 0.2 /100WBC 07/04/24 06:22 Sodium 134 mmol/L (136-145) L 07/04/24 06:22 Corrected Sodium TNP 07/04/24 06:22 Potassium 5.2 mmol/L (3.5-5.1) H 07/04/24 06:22 Chloride 102 mmol/L (98-107) 07/04/24 06:22 Carbon Dioxide 22.7 mmol/L (21-32) 07/04/24 06:22 BUN 34 mg/dL (7-18) H 07/04/24 06:22 Creatinine 1.53 mg/dL (0.70-1.30) H 07/04/24 06:22 Est GFR (MDRD) Af Amer 56 (>60) L 07/04/24 06:22 Est GFR (MDRD) Non-Af 46 (>60) L 07/04/24 06:22 Glucose 72 mg/dL (65-99) 07/04/24 06:22 POC Glucose (mg/dL) 100 mg/dL (65-99) H 06/23/24 11:58 Calcium 8.1 mg/dL (8.5-10.1) L 07/04/24 06:22 Corrected Calcium 9.8 mg/dL (8.5-10.1) 07/04/24 06:22 Magnesium 2.3 mg/dL (2.0-2.9) 07/02/24 04:36 Total Bilirubin 0.80 mg/dL (0.2-1.0) 07/04/24 06:22 AST 146 Units/L (15-37) H 07/04/24 06:22 ALT 82 Units/L (12-78) H 07/04/24 06:22 Alkaline Phosphatase 1000 Units/L (46-116) H 07/04/24 06:22 Total Protein 6.3 g/dL (6.4-8.2) L 07/04/24 06:22 Albumin 1.9 g/dL (3.4-5.0) L 07/04/24 06:22 Globulin 4.4 g/dL (2.5-4.5) 07/04/24 06:22 Albumin/Globulin Ratio 0.4 Ratio (1.1-2.1) L 07/04/24 06:22 Hospital Course: The patient is a pleasant 89-year-old white male with a complex medical history, including cancer, COPD, coronary artery disease, and congestive heart failure. He was admitted to [facility] for swingbed status following seizure- like activity that resulted in a significant upper extremity wound, requiring ongoing wound care and pain management. During his stay, the patient has been cooperative with physical therapy, showing improvement in strength and mobility. He has required opioid pain control, receiving approximately two 5 mg doses of hydrocodone in 24 hours, with good effect. The patient prefers to attempt pain management with Tylenol before using hydrocodone. Additionally, due to worsening anxiety, the patient has been prescribed low-dose Xanax (0.25 mg) during his stay, and the family has requested a prescription for this upon discharge. The patient experienced hyperkalemia, which has been managed with [place], resulting in a current potassium level of 5.2. His renal function is stable, with a BUN of 34 and creatinine of 1.53. He remains afebrile, with stable vital signs, including a blood pressure of 104/68. The patient continues to use [place]onebs and has required intermittent oxygen therapy. Given his history of peripheral vascular disease, COPD, and reflux, he will require a hospital bed that allows elevation of the head and lower extremities to manage symptoms and prevent complications. We have made arrangements for home health services and physical therapy. Dressing changes will be needed for his upper extremity wound. Patient has mobility limitation which significantly impairs performing MRADL (mobility related activities of daily living) in the home. A cane or walker will not work. The use of a wheelchair will be used on a regular basis to prevent falls. Patient also needs a seat and back cushion because patient will be in the wheelchair for more than 4 hours per day. Caregiver agrees with the plan and is able to assist with the chair. Home is big enough to maneuver the wheelchair. Prescriptions for hydrocodone and Xanax will be provided upon discharge, along with a recommendation for nocturnal oxygen therapy. He will continue to follow up with Dr. Merida for ongoing management of his cancer.
== END 2024-07-04 13:45 | disposition home health service (06) | DRG 101 ==
LOC: MED/SURG 17:26
PROVIDERS: ADMIT Internal Medicine; ATTEND Internal Medicine